=== PATIENT | female | born 1960 | race Caucasian/White ===

== ENCOUNTER → 2018-11-07 | Outpatient (CLI) | payer BC ==
[2018-11-07 09:52] LABS: ALT 36 U/L (9-52); AST 26 U/L (14-36); Albumin 4.7 g/dL (3.5-5.0); Alkaline Phosphatase 58 U/L (38-126); Anion Gap 7 mmol/L; Blood Urea Nitrogen 19 mg/dL (7-17); Calcium 10.1 mg/dL (8.4-10.2); Carbon Dioxide 29 mmol/L (22-30); Chloride 106 mmol/L (98-107); Cholesterol 163 mg/dL (<200); Glucose 105 mg/dL (74-99); HDL Cholesterol 59 mg/dL (40-60); LDL Cholesterol,Calculated 75 mg/dL (0-99); Potassium 4.8 mmol/L (3.5-5.1); Sodium 142 mmol/L (137-145); Total Bilirubin 0.5 mg/dL (0.2-1.3); Total Protein 7.1 g/dL (6.3-8.2); Triglycerides 147 mg/dL (<150)
[2018-11-07 10:07] LABS: T4, Free (Free Thyroxine) 0.85 ng/dL (0.78-2.19)
--- NOTE | 2018-11-07 15:13 | BD ---
EXAMINATION TYPE: Axial Bone Density DATE OF EXAM: 11/07/2018 COMPARISON: NONE CLINICAL HISTORY: Height: 63.5 IN Weight: 334 LBS RISK FACTORS HISTORY OF: Active: MODERATE Postmenopausal woman: AGE 45 TOTAL HYST Lost more than 2 inches in height since high school: YES 4" MEDICATIONS: Additional Medications: VIT D, MULTI VIT, BLOOD PRESSURE, DEPRESSION, REQUIP, CYSTITIS OF BLADDER ME D, NORCO, Additional History: HODGEKINS LYMPHOMA, WITH CHEMO AGE 44 EXAM MEASUREMENTS: Bone mineral densitometry was performed using the [employer] System. Bone mineral density as measured about the Lumbar spine is: ----- L1-L4(G/cm2): 1.290 T Score Values are as follows: ----- L2: 0.7 ----- L3: 1.2 ----- L4: 1.3 ----- L1-L4: 0.9 Bone mineral density BASELINE Bone mineral density about the R hip (g/cm2): 0.961 Bone mineral density about the L hip (g/cm2): 0.981 T Score values are as follows: -----R Neck: -0.6 -----L Neck: -0.4 -----R Total: -0.3 -----L Total: -0.2 Bone mineral density [id number] IMPRESSION: Normal (Values between +1 and -1 indicate normal bone mass). Consider repeating this study in 5 year s or sooner if there is some new clinical indication. NOTE: T-SCORE=SD OF THE YOUNG ADULT MEAN.
[2018-11-07 19:15] LABS: Hemoglobin A1C 5.9 % (4.0-6.0)
--- NOTE | 2018-11-08 11:05 | MM ---
Reason for exam: screening (asymptomatic). Last mammogram was performed 1 year and 2 months ago. History: Patient is postmenopausal, has history of other cancer at age 44, and is nulliparous. Benign stereotactic core biopsy of the right breast, April 20, 2004. Cyst aspiration of the right breast. Physical Findings: A clinical breast exam by your physician is recommended on an annual basis and results should be correlated with mammographic findings. MG Screening Mammo w CAD Bilateral CC and MLO view(s) were taken. Prior study comparison: September 20, 2017, mammogram, performed at [facility]. June 05, 2015, bilateral MG screening mammo w CAD. April 05, 2013, bilateral digital screening mammo w/CAD. There are scattered fibroglandular densities. Stable benign calcifications. There is no discrete abnormality. No significant changes when compared with prior studies. ASSESSMENT: Benign, BI-RAD 2 RECOMMENDATION: Routine screening mammogram of both breasts in 1 year.
== END | disposition home or self-care (01) ==
LOC: RADMAMWWP 08:09
PROVIDERS: ATTEND Family Medicine
DX: Z12.31 Encounter for screening mammogram for malignant neoplasm of breast (principal); M51.36 Other intervertebral disc degeneration, lumbar region; E78.5 Hyperlipidemia, unspecified; E66.01 Morbid (severe) obesity due to excess calories
CPT/HCPCS: 77067; 77080; 80053; 80061; 82306; 83036; 84439; 84443

== ENCOUNTER 2020-01-03 07:52 | Day surgery (SDC) | payer BC ==
[2020-01-02 09:33] VITALS: BMI 48.2
[~2020-01-03 07:52] MED LIST: LACTATED RINGERS 1,000 ML IV SCH; LIDOCAINE 1% (10MG/ML) FOR IV START INTRADERMA PRN
[2020-01-03 08:25] VITALS: TEMP 96.8
[2020-01-03] MEDS ORDERED: PROPOFOL 10 MG/ML 20 ML VIAL IV ONE (09:18)
--- NOTE | 2020-01-03 09:51 | P.PCN ---
Date of Procedure: 01/03/20 Description of Procedure: BRIEF HISTORY: Patient is a 59-year-old female with a prior history of colon polyps and family history of colon cancer presenting for outpatient colonoscopy. Denies any change in bowel habits, blood per rectum or abdominal pain. Does report some hemorrhoidal irritation bowel prep yesterday. PROCEDURE PERFORMED: Colonoscopy with polypectomy. PREOPERATIVE DIAGNOSIS: History of colon polyps, family history of colon cancer, last colonoscopy 2014. ESTIMATED BLOOD LOSS: Minimal. IV sedation per Anesthesia. PROCEDURE: After informed consent was obtained, the patient, was brought into the endoscopy unit. IV sedation was administered by Anesthesia under continuous monitoring. Digital rectal examination was normal. Initially the Olympus CF-190 flexible video colonoscope was then inserted in the rectum, gradually advanced into the cecum without any difficulty. Careful examination was performed as the scope was gradually being withdrawn. Ileocecal valve and the appendiceal orifice were visualized and appeared normal. Prep was excellent. Mucosa of the cecum, ascending colon, transverse colon, descending colon, sigmoid colon, and rectum appeared normal. Diminutive 2 mm sigmoid colon polyp removed with cold forcep polypectomy. Retroflexion was performed in the rectum and no lesions were seen, low-grade internal hemorrhoids. The patient tolerated the procedure well. IMPRESSION: Normal-appearing colon from rectum to cecum. Diminutive sigmoid polyp removed with cold forceps. Mild sigmoid diverticulosis. Low-grade internal hemorrhoids. RECOMMENDATIONS: Findings of this examination were discussed with the patient. Okay to resume diet. Okay to resume medications. Await pathology from polypectomy. Would recommend repeat colonoscopy in 5 years for family history of colon cancer.
[2020-01-03 10:05] VITALS: PULSE 99
[2020-01-03 10:27] VITALS: BP 107/74; RESP 18
== END 2020-01-03 10:26 | disposition home or self-care (01) ==
LOC: ORWHC2ENDO 07:52
PROVIDERS: ATTEND Internal Medicine
DX: Z12.11 Encounter for screening for malignant neoplasm of colon (principal); K63.5 Polyp of colon; K64.8 Other hemorrhoids; K57.30 Diverticulosis of large intestine without perforation or abscess without bleeding; I10 Essential (primary) hypertension; E78.5 Hyperlipidemia, unspecified; Z86.010 Personal history of colon polyps; Z80.0 Family history of malignant neoplasm of digestive organs; Z88.8 Allergy status to other drugs, medicaments and biological substances; Z91.09 Other allergy status, other than to drugs and biological substances; Z79.82 Long term (current) use of aspirin; Z79.899 Other long term (current) drug therapy; Z79.1 Long term (current) use of non-steroidal anti-inflammatories (NSAID); Z79.891 Long term (current) use of opiate analgesic; Z98.890 Other specified postprocedural states; Z90.49 Acquired absence of other specified parts of digestive tract; Z90.710 Acquired absence of both cervix and uterus; Z87.39 Personal history of other diseases of the musculoskeletal system and connective tissue; Z97.2 Presence of dental prosthetic device (complete) (partial); Z85.72 Personal history of non-Hodgkin lymphomas
CPT/HCPCS: 88305; 45380; J2704

== ENCOUNTER → 2020-03-20 | Outpatient (CLI) | payer BC ==
--- NOTE | 2020-03-20 17:13 | CONS ---
CONSULTATION DATE OF SERVICE: 03/20/2020 A 59-year-old lady who has been evaluated in the Sleep Center for possible obstructive sleep apnea-hypopnea syndrome and periodic limb movements. HISTORY OF PRESENT ILLNESS/SLEEP-WAKE EVALUATION: Patient's usual sleep schedule on weekdays from 10 p.m. to 6:30 a.m., on weekends from 11 p.m. to 7 or 8 a.m. She does have problems with falling asleep although no TV in bedroom. She usually start to sleep on her stomach position, then she moved and sleeps in different positions. She snores. During a recent colonoscopy, she was told about a low level of oxygen and then she was recommended to be evaluated in Sleep Clinic. She grinds her teeth in her sleep, wakes up with dry mouth, restless legs up to 4 times per night with one episode of nocturia. Presently, she is on Requip and that improved her restless leg symptoms and movements at night. In the morning, patient wakes up tired, worries about his sleep, has episodes of depression, anxiety. [place] Sleepiness Scale is 6. PAST MEDICAL HISTORY: Positive for hypertension, hyperlipidemia, Hodgkin lymphoma, allergy. PAST SURGICAL HISTORY: Hysterectomy, tonsillectomy, bilateral cataract surgery, lap band surgery. Left knee replacement for right carpal tunnel syndrome surgery. MEDICATIONS: Atenolol 50 mg b.i.d., Lunesta 3 mg q.h.s., Lipitor 10 mg q.h.s., Effexor XR 150 mg and 75 mg daily, Amiodarone 100 mg t.i.d., Requip 0.5 mg q.h.s., Wellbutrin SR 150 mg q.12 hours, Zyrtec 10 mg daily daily, multivitamins. SOCIAL HISTORY: Negative for smoking or using alcohol. FAMILY HISTORY: Positive for heart problems, stroke. REVIEW OF SYSTEMS: Multiple awakenings from sleep, episodes of sleepiness during the day, sometimes moving her legs during the sleep. PHYSICAL EXAM: lady without distress, BP 170/82, HR 84, RR 16, height 5, 4-1/2, weight 356.2, BMI 60.7, temperature 98.0, oxygen saturation at room air 95%. OROPHARYNX: Extremely low position of soft palate, Mallampati IV, wide neck 16-1/4 inches in circumference. ABDOMEN: Obese. NECK: Supple, no JVD. Thyroid is not palpable. LUNGS: Clear to percussion and to auscultation. Good air exchange. No wheezing or rhonchi. HEART: S1, S2 regular. No murmurs, gallops, or rubs. EXTREMITIES: No clubbing or cyanosis. SPORTS NUTRITIONIST: Awake, alert, and oriented X3. Cranial nerves 2 to 7 intact. There is no fasciculation or atrophy. noted. No focal deficits observed. IMPRESSION: 1. Snoring, multiple awakenings from sleep, nocturia, extremely low position of soft palate, Mallampati IV, wide neck, obstructive sleep apnea-hypopnea syndrome. 2. Morbid obesity, body mass index 60.7. 3. History of restless legs syndrome. 4. Movements of the legs at night, periodic limb movements. 5. Hypertension. 6. Hyperlipidemia. 7. History of Hodgkin's lymphoma. 8. Allergies. 9. Status post bilateral cataract surgery. 10.Status post hysterectomy. 11.Status post tonsillectomy. 12.Status post lap band surgery. 13.Status post left knee replacement. 14.Status post right carpal tunnel syndrome. PLAN: 1. Polysomnography for evaluation of patient's breathing during sleep. 2. CPAP/BiPAP titration if sleep study confirms obstructive sleep apnea-hypopnea syndrome. 3. Preferable position during sleep on the side. 4. No driving if patient feels any sleepiness. 5. I will see patient for follow up visit to explain results of testing and following plan. Thank you very much for referring this patient for consultation. Sincerely, Willie Long MD, PhD, FAASM Diplomat of [place] [employer] [place] [employer] Passenger Representative of [facility] [place] MMODL / IJN: [id number] /
== END | disposition home or self-care (01) ==
LOC: SLEEP 10:51
PROVIDERS: ATTEND Internal Medicine
DX: E66.01 Morbid (severe) obesity due to excess calories (principal); G47.61 Periodic limb movement disorder; I10 Essential (primary) hypertension; E78.5 Hyperlipidemia, unspecified; T78.40XA Allergy, unspecified, initial encounter; Z85.71 Personal history of Hodgkin lymphoma; Z68.44 Body mass index [BMI] 60.0-69.9, adult; Z90.710 Acquired absence of both cervix and uterus; Z96.652 Presence of left artificial knee joint; Z98.42 Cataract extraction status, left eye; Z98.41 Cataract extraction status, right eye
CPT/HCPCS: 99211

== ENCOUNTER → 2020-06-25 | Outpatient (CLI) | payer BC ==
--- NOTE | 2020-06-25 13:12 | SFUN ---
SLEEP CENTER FOLLOW UP NOTE DATE OF SERVICE: 06/25/2020 A 59-year-old lady who has been followed in Sleep Center for treatment of obstructive sleep apnea-hypopnea syndrome. Recently patient had a polysomnogram which showed moderate obstructive sleep apnea, then she had CPAP titration and subsequently she was started on treatment with CPAP. Today is her first visit after she started therapy. In the beginning, patient had some difficulties with the CPAP related to the pressure, but presently she feels better and able to use her CPAP unit. [place] Sleepiness Scale today is 3, which is totally normal. I checked her CPAP machine. CPAP pressure is 8 cm of water. Usage is 22 out of 30 nights and 12 out of 30 nights for more than 4 hours. Average usage 4.3 hours per night. Leak is 11 L/minutes. Apnea-hypopnea index is 1.3, which is perfect. MEDICATIONS: Atenolol 50 mg twice a day, Lunesta 3 mg at bedtime, Lipitor 10 mg once a day, Mobic 15 mg once a day, Effexor XR 150 mg once a day, [place] 100 mg 3 times a day, Requip 0.5 mg at bedtime, Xanax 0.25 mg up to 3 times a day, [place] 10/325 mg on p.r.n. basis q.6 hours, meclizine 12.5 mg p.r.n. up to 3 times a day, Zyrtec 10 mg once a day, aspirin 81 mg once a day. PHYSICAL EXAMINATION: GENERAL: Patient in no distress. VITAL SIGNS: BP 141/63, HR 86, RR 15, height 5 feet 4 inches, weight 350, BMI 60.2, temperature 98.0, oxygen saturation in room air 100% . HEENT: PERRLA, EOMI. Oropharynx low position of soft palate. NECK: Supple, no JVD. Thyroid is not palpable. LUNGS: Clear to percussion and to auscultation. Good air exchange. No wheezing or rhonchi. HEART: S1, S2 regular. No murmurs, gallops, or rubs. ABDOMEN: Obese. EXTREMITIES: No clubbing or cyanosis. SPACE TECHNOLOGIST: Awake, alert, and oriented X3. Cranial nerves 2 to 7 intact. There is no fasciculation or atrophy. noted. No focal deficits observed. IMPRESSION: 1. Obstructive sleep apnea-hypopnea syndrome. The patient normalized her breathing on the CPAP. 2. Obesity. 3. Restless legs syndrome. 4. Periodic limb movements. 5. Hypertension. 6. Hyperlipidemia. 7. History of Hodgkin lymphoma. 8. Allergies. PLAN: 1. I discussed with the patient necessity to use CPAP equipment every night for the whole night and explained to her about the position of the machine, about using distilled water, about drying the CPAP unit and tube the morning about cleaning. 2. Sleep hygiene with regular time in bed for at least 7-1/2 to 8 hours. 3. Precautions related to driving. No driving if feeling sleepiness. 4. I will maintain all necessary prescription for PAP supplies including mask, tube, filters. 5. Watching weight. 6. No driving if feeling sleepiness. 7. Follow-up visit in 6 months or earlier if patient has any problems. Thank you very much for allowing me to participate in management of your patient. Sincerely, Willie Long MD, PhD, FAASM Diplomat of [place] [employer] [place] [employer] Insurance Territory Manager of [facility] [place] MMODL / KEMN: [id number] /
== END | disposition home or self-care (01) ==
LOC: SLEEP 10:14
PROVIDERS: ATTEND Internal Medicine
DX: G47.33 Obstructive sleep apnea (adult) (pediatric) (principal); G25.81 Restless legs syndrome; I10 Essential (primary) hypertension; E78.5 Hyperlipidemia, unspecified; Z85.71 Personal history of Hodgkin lymphoma; Z99.89 Dependence on other enabling machines and devices; G47.61 Periodic limb movement disorder; Z79.899 Other long term (current) drug therapy; Z79.1 Long term (current) use of non-steroidal anti-inflammatories (NSAID); Z79.82 Long term (current) use of aspirin

== ENCOUNTER → 2021-01-28 | Outpatient (CLI) | payer OTHER ==
--- NOTE | 2021-01-28 12:29 | SFUN ---
SLEEP CENTER FOLLOW UP NOTE DATE OF SERVICE: 01/28/2021 60-year-old lady has been followed in Sleep Center for treatment of obstructive sleep apnea-hypopnea syndrome. Patient continued to use his CPAP equipment in night and most of the night she used it for the whole night. [place] Sleepiness Scale today is only normal. The patient had significant amount of movements during the sleep. She has had history of periodic limb movements. She is on Requip. Recently, the dose of Requip was increased to 1 mg at night. I checked her CPAP unit. Usage is 30/30 nights and 24/30 nights for more than 4 hours, which is in good compliance. Leak is 12 L/minute which is borderline. Apnea-hypopnea index of 1.2, which is totally normal. MEDICATIONS: Coreg 25 mg twice a day, Lunesta 3 mg at bedtime. Lipitor 10 mg at bedtime, Effexor XR 160 mg once a day, 100 mg 3 tablets a day, Requip 1 mg at bedtime, Wellbutrin q.12 hours, multivitamins, aspirin 81 mg once a day, [place] 10/325 on a p.r.n. basis, Lasix 20 mg once a day. PHYSICAL EXAMINATION: GENERAL: Patient in no distress. BP 119/65, HR about 100, height 5 feet 3 and 2 quarters, weight is 256.6 pounds. Body mass index 61.6. The patient increased her weight from 6 pounds since previous visit. HEENT: PERRLA, EOMI. Oropharynx low position of soft palate. NECK: Supple, no JVD. Thyroid is not palpable. LUNGS: Clear to percussion and to auscultation. Good air exchange. No wheezing or rhonchi. HEART: S1, S2 regular. No murmurs, gallops, or rubs. ABDOMEN: Obese. Soft and nontender. Bowel sounds are present. No organomegaly appreciated. EXTREMITIES: No clubbing or cyanosis. AERIAL PLANTING AND CULTIVATION MANAGER: Awake, alert, and oriented X3. Cranial nerves 2 to 7 intact. There is no fasciculation or atrophy. noted. No focal deficits observed. IMPRESSION: 1. Obstructive sleep apnea-hypopnea syndrome. Patient demonstrated very good compliance with treatment, benefitting from treatment, with normal respirations on CPAP. 2. Obesity, morbid range. Body mass index 61.6. 3. Restless legs syndrome. 4. Periodic limb movements on treatment with Requip. 5. Hypertension. 6. Hyperlipidemia. 7. History of Hodgkin lymphoma. 8. Allergies. 9. Status post hysterectomy. 10.Status post cholecystectomy. 11.Status post tonsillectomy. 12.Status post right knee replacement and left knee replacement. 13.Status post rotator cuff repair. PLAN: 1. I checked air filter and remind patient she should change air filter on a regular basis. 2. Patient will continue to use PAP equipment every night for the whole night. 3. Sleep hygiene with regular time in bed for at least 7-1/2 to 8 hours. 4. Precautions related to driving. No driving if feeling sleepiness. 5. I will maintain all necessary prescription for PAP supplies including mask, tube, filters. 6. Watching weight. 7. Follow-up visit in 6 months or earlier if patient has any problems. Thank you very much for allowing me to participate in management of your patient. Sincerely, Willie Long MD, PhD, FAASM Diplomat of [place] [employer] Specialties Sleep Medicine Board of [place] [employer] of Internal Medicine Green Feed Attendant of [facility] [place] MMODL / IJN: [id number] /
== END ==
LOC: SLEEP 10:52
PROVIDERS: ATTEND Internal Medicine
DX: G47.33 Obstructive sleep apnea (adult) (pediatric) (principal); E66.9 Obesity, unspecified; G25.81 Restless legs syndrome; G47.61 Periodic limb movement disorder; I10 Essential (primary) hypertension; E78.5 Hyperlipidemia, unspecified; Z68.44 Body mass index [BMI] 60.0-69.9, adult; Z99.89 Dependence on other enabling machines and devices; Z85.71 Personal history of Hodgkin lymphoma; T78.40XA Allergy, unspecified, initial encounter; Z90.49 Acquired absence of other specified parts of digestive tract; Z90.09 Acquired absence of other part of head and neck; Z96.653 Presence of artificial knee joint, bilateral; Z98.890 Other specified postprocedural states; Z90.711 Acquired absence of uterus with remaining cervical stump; Z79.899 Other long term (current) drug therapy; Z91.048 Other nonmedicinal substance allergy status; Z87.891 Personal history of nicotine dependence

== ENCOUNTER → 2021-03-31 | Outpatient (CLI) | payer OTHER ==
--- NOTE | 2021-03-31 09:44 | P.BASOAP ---
Subjective Progress Note Date: 03/31/21 Principal diagnosis: Morbid obesity Patient known to our service. Underwent laparoscopic band placement 2008. Applications believes her weight was around 260 at the time of band placement. She did lose weight down to approximately 220 blood gradually has gained weight over the years and is now 351. Patient says her band was previously leucin because of intractable vomiting. Still has intermittent episodes of vomiting. Every time the patient received a band adjustment she had complications of heartburn and vomiting. Lately she has had pain in the left upper quadrant. It feels like a spasm and is quite severe. It seems to be near the port. She has these episodes of pain every 6 weeks or so. She believes her band is empty. Objective - Exam Abdomen: Soft, nontender, nondistended Assessment/Plan (1) Morbid obesity Narrative/Plan: 60-year-old female with indwelling LAP-BAND and comp location from the band including intractable nausea vomiting, reflux, and pain at the port site. Options reviewed in detail. We will schedule for laparoscopic lap band removal, possible open at this time. Patient will consider future bariatric surgeries including gastric bypass and sleeve gastrectomy. Believe gastric bypass is a better option for the patient given her reflux symptoms and degree of obesity. Plan: Date: Initial Weight: Initial BMI: Current Weight: Current BMI: Type of Surgery: Total Volume in Band: Previous Volume: Volume Removed: Volume Added: Band Size:
[2021-03-31 09:49] VITALS: BP 138/75; PULSE 70; TEMP 97.8; BMI 54.9
== END ==
LOC: BARWHC3 09:01
PROVIDERS: ATTEND Surgery
DX: E66.01 Morbid (severe) obesity due to excess calories (principal); K95.09 Other complications of gastric band procedure; Z68.43 Body mass index [BMI] 50.0-59.9, adult; Z87.891 Personal history of nicotine dependence; Z88.8 Allergy status to other drugs, medicaments and biological substances; Z91.048 Other nonmedicinal substance allergy status
CPT/HCPCS: 99211

== ENCOUNTER → 2021-09-03 | Outpatient (CLI) | payer OTHER ==
--- NOTE | 2021-09-03 15:12 | SFUN ---
SLEEP CENTER FOLLOW UP NOTE DATE OF SERVICE: 09/03/2021 This 60-year-old lady has been followed in Sleep Center for treatment of obstructive sleep apnea-hypopnea syndrome. The patient continues to use her CPAP equipment every night for the whole night. She needs to get a new prescription for supplies. [place] Sleepiness Scale today is 3, which is normal. The patient is on treatment with Requip for restless legs and periodic limb movements. With the medication, no problems with leg movements. I checked her CPAP unit. Pressure is 8 cm of water. Usage is 30/30 nights, 28/30 nights for more than 4 hours. Leak is 25 L/minute, borderline. Apnea-hypopnea index is 2.0, which is totally normal. The air filter needs to be changed in the machine. The patient needs to get a new mask. MEDICATIONS: 1. Aspirin 81 mg once a day. 2. Carvedilol 25 mg twice a day. 3. Effexor XR 75 mg once a day. 4. Lasix 20 mg once a day. 5. Lipitor 10 mg once a day. 6. Lisinopril 10 mg once a day. 7. Lunesta 3 mg once a day. 8. [place] 10/325 mg once a day in the morning. 9. Requip 1 mg daily in the evening. 10.Zyrtec 10 mg once a day. 11.Wellbutrin SR 200 mg once every 12 hours. 12.Xanax 0.25 mg up to 3 times a day on p.r.n. basis. PHYSICAL EXAMINATION: GENERAL: Pleasant patient in no distress. VITAL SIGNS: BP 124/84, HR 99, RR 18, weight 364 pounds, height 5 feet 3-2/4 inches, temperature 97.0, oxygen saturation at room air 97%. HEENT: PERRLA, EOMI, evaluation of oropharynx showed tongue protrudes midline. Low position of soft palate. NECK: Supple, no JVD. Thyroid is not palpable. LUNGS: Clear to percussion and to auscultation. Good air exchange. No wheezing or rhonchi. HEART: S1, S2 regular. No murmurs, gallops, or rubs. ABDOMEN: Obese. EXTREMITIES: No clubbing or cyanosis. POOL LIFEGUARD: Awake, alert, and oriented X3. Cranial nerves 2 to 7 intact. There is no fasciculation or atrophy. noted. No focal deficits observed. IMPRESSION: 1. Obstructive sleep apnea-hypopnea syndrome. Patient demonstrated great compliance with treatment, benefitting from treatment. 2. Obesity in morbid range. The patient's weight increased by 8 pounds since previous visit. At present her weight is 364.8 pounds. 3. Restless legs syndrome. 4. Periodic limb movements. 5. Hypertension. 6. Hyperlipidemia. 7. History of Hodgkin's lymphoma. 8. Allergies. 9. Status post hysterectomy. 10.Status post cholecystectomy. 11.Status post tonsillectomy. 12.Status post bilateral knee replacement. 13.Status post rotator cuff repair. PLAN: 1. Patient will continue to use PAP equipment every night for the whole night. 2. Sleep hygiene with regular time in bed for at least 7-1/2 to 8 hours. 3. Precautions related to driving. No driving if feeling sleepiness. 4. I will maintain all necessary prescription for PAP supplies including mask, tube, filters. 5. Watching weight. 6. Follow-up visit in 6 months or earlier if patient has any problems. Thank you very much for allowing me to participate in the management of your patient. Sincerely, Willie Long MD, PhD, FAASM Diplomat of [place] [employer] Sleep Medicine Board of [place] [employer] Medicine Casing Tester of [facility] [place] MMODL / DAVID: [id number] /
== END ==
LOC: SLEEP 13:46
PROVIDERS: ATTEND Internal Medicine
DX: G47.33 Obstructive sleep apnea (adult) (pediatric) (principal); E66.01 Morbid (severe) obesity due to excess calories; G25.81 Restless legs syndrome; G47.61 Periodic limb movement disorder; I10 Essential (primary) hypertension; E78.5 Hyperlipidemia, unspecified; Z85.71 Personal history of Hodgkin lymphoma; T78.40XD Allergy, unspecified, subsequent encounter; Z90.710 Acquired absence of both cervix and uterus; Z90.49 Acquired absence of other specified parts of digestive tract; Z90.89 Acquired absence of other organs; Z96.653 Presence of artificial knee joint, bilateral; Z98.890 Other specified postprocedural states; Z79.899 Other long term (current) drug therapy; Z91.09 Other allergy status, other than to drugs and biological substances; Z88.8 Allergy status to other drugs, medicaments and biological substances; Z87.891 Personal history of nicotine dependence

== ENCOUNTER → 2022-03-25 | Outpatient (CLI) | payer OTHER ==
--- NOTE | 2022-03-25 10:53 | P.PN ---
Subjective DATE: 03/25/2022 FOLLOW UP VISIT. Patient with obstructive sleep apnea hypopnea syndrome return to sleep center for follow-up visit. Information from previous visit have been reviewed. Patient is using PAP equipment every night for the whole night, getting PAP supplies in time. The patient does not have significant problems with the mask, PAP unit and humidification. [place] sleepiness scale is for. I checked PAP unit. Air filter is related to be replaced PAP unit pressure 8 cm H2O. Usage is 100 % for more then 4 hours, average 6.8 hours per night. Leak is 23 l/m, which is in acceptable range. Apnea Hypopnea Index is 1.7, which is normal. MEDICATIONS:1. Aspirin 81 mg once a day 2. Carvedilol 25 mg twice a day 3. And Effexor 150 mg once a day 4. Lasix 20 mg once a day 5. Lipitor 10 mg once a day 6. Lisinopril 10 mg once a day 7. [place] [id number] milligrams once a day 8. Requip once a day 9. Wellbutrin 200 mg every 12 hours During physical exam: GENERAL: A pleasant patient without any distress. VITAL SIGNS: BP 164/91, HR 84, RR 16 , weight 370 patient increased to wait on 6 pounds comparing to the previous visit, temperature 96.3, oxygen saturation at room air 98 % . HEENT: PERRLA, EOMI.low position of soft palate . NECK: Supple. No JVD. LUNGS: Clear to percussion and to auscultation. Good air exchange. No wheezing or rhonchi. HEART: S1, S2 regular. ABDOMEN: Soft and nontender. Obese EXTREMITIES: No clubbing or cyanosis. OPS ANALYST: Awake, alert, and oriented x3. No focal deficit. Impressions: 1. Obstructive sleep apnea-hypopnea syndrome. Patient demonstrated great compliance with treatment, benefiting from treatment. 2. Obesity body mass index 62.3. 3. Restless leg syndrome. 4. Periodic limb movements. 5. Hypertension. 6. Hyperlipidemia. 7. ALLERGIES. 8. History of Hodgkin's lymphoma. 9. Status post hysterectomy. 10. Status post cholecystectomy. 11. Status post tonsillectomy. 12. Status post bilateral knee replacement. Plan: 1. Continue using PAP equipment every night for the whole night. 2. To change air filter at least 1-2 times per month. 3. PAP unit should stay lower then position of the head. 4. Advised patient to remove all remaining water from humidifier canister daily and make it dry after each usage. Refill canister with fresh distilled water before each usage. 5. Sleep hygiene with regular time in bed for at least 8 hours. 6. Precautions related to driving. No driving if feel any sleepiness. 7. I will maintain prescription for PAP supplies including mask, tube, filters. 8. Follow up visit in 6 months or earlier if patient has any problems. 9. Losing weight. Thank you very much for allowing me to participate in the management of your patient. Willie Long MD, PhD, FAASM. Diplomat of [place] Board [employer] Sleep Medicine, Sleep Medicine Board by [place] [employer] of Internal Medicine Director Information Security of [facility] [place]
== END ==
LOC: SLEEP 10:27
PROVIDERS: ATTEND Internal Medicine
DX: G47.33 Obstructive sleep apnea (adult) (pediatric) (principal); E66.9 Obesity, unspecified; Z68.44 Body mass index [BMI] 60.0-69.9, adult; G25.81 Restless legs syndrome; G47.61 Periodic limb movement disorder; I10 Essential (primary) hypertension; E78.5 Hyperlipidemia, unspecified; T78.40XA Allergy, unspecified, initial encounter; Z85.71 Personal history of Hodgkin lymphoma; Z90.710 Acquired absence of both cervix and uterus; Z90.49 Acquired absence of other specified parts of digestive tract; Z90.09 Acquired absence of other part of head and neck; Z96.653 Presence of artificial knee joint, bilateral; Z99.89 Dependence on other enabling machines and devices; Z79.899 Other long term (current) drug therapy; Z88.9 Allergy status to unspecified drugs, medicaments and biological substances; Z91.09 Other allergy status, other than to drugs and biological substances; Z87.891 Personal history of nicotine dependence

== ENCOUNTER → 2022-09-15 | Outpatient (CLI) | payer MEDICARE, OTHER ==
--- NOTE | 2022-09-16 07:51 | MM ---
Reason for Exam: Screening (asymptomatic). Last screening mammogram was performed 12 month(s) ago. Patient History: Menarche at age 12. Patient has no children. Left ovary removed at age 43. Right ovary removed at age 43. Hysterectomy at age 43. Postmenopausal. Other cancer, age 44. Cyst Aspiration on the Right side. 04/20/2004, Benign Stereotactic Core Biopsy on the right side. Paternal cousin had breast cancer under age 50. Paternal cousin had breast cancer at or over age 50. Paternal cousin had breast cancer at or over age 50. Risk Values: [place] 5 year model risk: 2.1%. NCI Lifetime model risk: 8.7%. Prior Study Comparison: 04/05/2013 Bilateral Screening Mammogram, [facility]. 06/05/2015 Bilateral Screening Mammogram, [facility]. 09/20/2017 Bilateral MG 3D screening mammo w/cad, [facility]. 09/20/2017 Screening Mammogram, [facility]. 11/07/2018 Bilateral Screening Mammogram, [facility]. 09/03/2021 Bilateral MG 3D screening mammo w/cad, [facility]. Tissue Density: The breast tissue is almost entirely fat. Findings: Analyzed By CAD. Benign-appearing calcifications bilaterally. There is no suspicious group of microcalcifications or new suspicious mass in either breast. Overall Assessment: Benign, BI-RAD 2 Management: Screening Mammogram of both breasts in 1 year. A clinical breast exam by your physician is recommended on an annual basis and results should be correlated with mammographic findings. [facility] will attempt to contact patient to return for supplemental views and ultrasound if indicated. Electronically signed and approved by: Kelvin Ladd DO
== END | disposition home or self-care (01) ==
LOC: RADMAMWWP 13:38
PROVIDERS: ATTEND Family Medicine
DX: Z12.31 Encounter for screening mammogram for malignant neoplasm of breast (principal); Z80.3 Family history of malignant neoplasm of breast; Z78.0 Asymptomatic menopausal state
CPT/HCPCS: 77063; 77067

== ENCOUNTER → 2022-09-30 | Outpatient (CLI) | payer MEDICARE ==
--- NOTE | 2022-09-30 13:49 | P.PN ---
Subjective DATE: 09/30/2022 FOLLOW UP VISIT. Patient with obstructive sleep apnea hypopnea syndrome return to sleep center for follow-up visit. Information from previous visit have been reviewed. Patient is using PAP equipment every night for the whole night, getting PAP supplies in time. The patient does not have significant problems with the mask, PAP unit and humidification. [place] sleepiness scale is 4. I checked information from PAP unit. PAP unit pressure 8 cm H2O. Usage is 100 % for more then 4 hours, average 7.2 hours per night. Leak is 16 l/m, which is in acceptable range. Apnea Hypopnea Index is 2.0, which is normal. MEDICATIONS:1. Carvedilol 25 mg twice a day 2. And Effexor 150 mg once a day 3. Lipitor 20 mg once a day 4. Lisinopril 10 mg once a day 5. [place] 6. Reequip 1 mg once a day 7. Wellbutrin 200 mg twice a day 8. Effexor 75 mg 3 cups a day During physical exam: GENERAL: A pleasant patient without any distress. VITAL SIGNS: BP 155/76, HR 106, RR 18, weight 356, temperature 97, oxygen saturation at room air 97 % . HEENT: PERRLA, EOMI.low position of soft palate, Mallapati 3. NECK: Supple. No JVD. LUNGS: Clear to percussion and to auscultation. Good air exchange. No wheezing or rhonchi. HEART: S1, S2 regular. ABDOMEN: Soft and nontender. Obese EXTREMITIES: No clubbing or cyanosis. BUSINESS OFFICE SPECIALIST: Awake, alert, and oriented x3. No focal deficit. Impressions: 1. Obstructive sleep apnea-hypopnea syndrome. Patient demonstrated great compliance with treatment, benefiting from treatment. 2. Obesity, body mass index around 60. 3. Restless leg syndrome. 4. Periodic limb movements on treatment with Requip no complaints. 5. Hypertension. 6. History of Hodgkin lymphoma. 7. Hyperlipidemia. 8. ALLERGIES. 9. Status post bilateral knee replacement. 10. Status post tonsillectomy. 11. Status post hysterectomy. Plan: 1. Continue using PAP equipment every night for the whole night. 2. To change air filter at least 1-2 times per month. 3. PAP unit should stay lower then position of the head. 4. Advised patient to remove all remaining water from humidifier canister daily and make it dry after each usage. Refill canister with fresh distilled water before each usage. 5. Sleep hygiene with regular time in bed for at least 8 hours. 6. Precautions related to driving. No driving if feel any sleepiness. 7. I will maintain prescription for PAP supplies including mask, tube, filters. 8. Watching and losing weight. 9. Follow up visit in 6 months or earlier if patient has any problems. Thank you very much for allowing me to participate in the management of your patient. Willie Long MD, PhD, FAASM. Diplomat of [place] [employer], Sleep Medicine Board by [place] [employer] Consultant [facility] [place]
== END ==
LOC: SLEEP 13:24
PROVIDERS: ATTEND Internal Medicine
DX: G47.33 Obstructive sleep apnea (adult) (pediatric) (principal); E66.9 Obesity, unspecified; E78.5 Hyperlipidemia, unspecified; G25.81 Restless legs syndrome; I10 Essential (primary) hypertension; Z68.44 Body mass index [BMI] 60.0-69.9, adult; Z79.899 Other long term (current) drug therapy; Z85.71 Personal history of Hodgkin lymphoma; Z98.890 Other specified postprocedural states; G47.61 Periodic limb movement disorder; Z99.89 Dependence on other enabling machines and devices; Z96.653 Presence of artificial knee joint, bilateral; Z91.048 Other nonmedicinal substance allergy status; Z87.891 Personal history of nicotine dependence
CPT/HCPCS: 99212

== ENCOUNTER → 2022-11-04 | Outpatient (CLI) | payer MEDICARE ==
[2022-11-04 21:07] LABS: Anion Gap 10.5 mmol/L (10.00-18.00); Carbon Dioxide 27.5 mmol/L (20.0-27.5); Potassium 5.2 mmol/L (3.5-5.5)
[2022-11-04 21:08] LABS: African American GFR (CKD) 55.7 (60.0-200.0); BUN/Creat Ratio 19.83 Ratio (12.00-20.00); Blood Urea Nitrogen 23.8 mg/dL (9.0-27.0); Calcium 10.1 mg/dL (8.7-10.3); Non-African American GFR(CKD) 48.1 (60.0-200.0)
== END | disposition home or self-care (01) ==
LOC: LABWHC1 13:01
PROVIDERS: ATTEND Family Medicine
DX: I10 Essential (primary) hypertension (principal)
CPT/HCPCS: 36415; 80048

== ENCOUNTER → 2022-12-20 | Outpatient (CLI) | payer MEDICARE ==
[~2022-12-20] MED LIST changes: -LACTATED RINGERS 1,000 ML IV SCH; -LIDOCAINE 1% (10MG/ML) FOR IV START INTRADERMA PRN; +REGADENOSON 0.4 MG/5 ML SYRINGE IV PRN
[2022-12-20 10:25] LABS: HCT 39.4 % (34.0-46.0); HGB 12.7 gm/dL (11.4-16.0); MCH 31.2 pg (25.0-35.0); MCHC 32.2 g/dL (31.0-37.0); MCV 96.9 fL (80.0-100.0); Mean Platelet Volume 7.8; Platelet Count 333 k/uL (150-450); RBC 4.07 m/uL (3.80-5.40); RDW 12.7 % (11.5-15.5); WBC 7.8 k/uL (3.8-10.6)
[2022-12-20 10:37] LABS: ALT 21 U/L (4-34); AST 27 U/L (14-36); African American GFR (CKD) 71 (>60 ml/min/1.73 sqM); Albumin 4.3 g/dL (3.5-5.0); Albumin/Globulin Ratio 1.7; Alkaline Phosphatase 60 U/L (38-126); Anion Gap 8 mmol/L; Blood Urea Nitrogen 22 mg/dL (7-17); Calcium 9.8 mg/dL (8.4-10.2); Carbon Dioxide 26 mmol/L (22-30); Chloride 105 mmol/L (98-107); Globulin 2.5 g/dL; Glucose 121 mg/dL (74-99); Non-African American GFR(CKD) 62 (>60 ml/min/1.73 sqM); Potassium 4.6 mmol/L (3.5-5.1); Sodium 139 mmol/L (137-145); Total Bilirubin 0.5 mg/dL (0.2-1.3); Total Protein 6.8 g/dL (6.3-8.2)
[2022-12-20 10:54] LABS: T4, Free (Free Thyroxine) 0.99 ng/dL (0.78-2.19)
--- NOTE | 2022-12-20 11:55 | CA ---
Lexiscan Nuclear Stress Test Report Name: Shahrzad Khalil Exam Date: 12/20/2022 10:19 Exam Location: [place] Stress Ht (in): 64 Wt (lb): 340 BSA: 2.45 Ordering Phys: Johnny Franco MD Referring Phys: MICHAEL,, Technologist: Maulik Vazquez Age: 62 Gender: F : 1960 Procedure CPT: Indications: R07.2, R06.02 ICD-10 Codes: Patient History: CHEST PAIN, DIFFICULTY IN BREATHING, HTN, ELEVATED CHOLESTEROL LEVELS, FAMILY HX OF HEART DISEASE, PRIOR SMOKER Medications: Meds past 24 hrs: Pretest Chest Pain: STRESS TEST Lexiscan Protocol Exercise Duration (min:sec): 01:[address] Depressions (mm): Angina Score: 2 Craft Score: Resting HR (bpm): 83 Peak HR (bpm): 90 Resting BP (mmHg): 129 / 77 Peak BP (mmHg): 151 / 85 MPHR: 157 Target HR: 133 % MPHR: 57 METS: 1.0 Total Dose: Peak Dose: Atropine: Double Product: 25673 BP Response: Stress Termination: INFUSION COMPLETE Stress Symptoms: NO SYMPTOMS Stress Summary: ECG ANALYSIS Resting ECG: Stress ECG: CONCLUSIONS At baseline EKG showed normal sinus rhythm, left axis deviation, right bundle-branch block with nonspecific ST depressions V3 through V5. Patient recieved IV infusion of Lexiscan 0.4mg and at peak infusion EKG showed no significant change from baseline. Conclusions: 1. Nonspecific stress EKG portion secondary baseline EKG abnormalities. 2. Nuclear imaging to be reported separately. Dr. Jose Rafael Van DO (Electronically Signed) Final Date: 20 December 2022 11:54
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
--- NOTE | 2022-12-20 13:19 | NM ---
EXAMINATION TYPE: NM stress lexiscan cardiolite DATE OF EXAM: 12/20/2022 COMPARISON: NONE CLINICAL INDICATION: Female, 62 years old with history of R07.2, R06.02; TECHNIQUE: After the intravenous administration of 9.4 mCi Tc 99m Sestamibi - Cardiolite resting SPE CT images acquired 45 minutes post injection. The patient received 0.4mg Lexiscan, 26.4 mCi Tc 99m Sestamibi - Stress images obtained [address] injection FINDINGS: Review of stress and rest SPECT images demonstrates decreased perfusion involving the apical anterior and apical septal wall which may reflect stress-induced ischemia. Gated analysis shows normal wall m otion with an estimated left ventricular ejection fraction of 57 %. IMPRESSION: decreased perfusion involving the apical anterior and apical septal wall which may reflect stress-ind uced ischemia.
[2022-12-21 04:10] LABS: LDL Cholesterol,Calculated 77.5 mg/dL (0.0-131.0)
== END | disposition home or self-care (01) ==
LOC: RADNMMAIN 08:26
PROVIDERS: ATTEND Internal Medicine Interventional Cardiology
DX: R07.2 Precordial pain (principal); R06.02 Shortness of breath
CPT/HCPCS: 93017; 84439; 80061; 80053; 84443; 85027; 82306; 83036; 36415; 78452; C8929; A9500; J2785; Q9950; 93306

== ENCOUNTER → 2022-12-20 | Outpatient (CLI) | payer MEDICARE ==
[2022-12-20 13:39] LABS: Appearance,Urine Clear (Clear); Bacteria,Urine Rare /hpf; Bilirubin,Urine Negative (Negative); Blood,Urine Negative (Negative); Color,Urine Yellow; Glucose,Urine (UA) Negative (Negative); Hyaline Casts,Urine 3 /lpf (0-2); Ketones,Urine Negative (Negative); Leukocyte Esterase,Urine Small (Negative); Mucus,Urine Rare /hpf; Nitrite,Urine Negative (Negative); PH, Urine 5.5 (5.0-8.0); Protein,Urine Trace (Negative); RBC,Urine 1 /hpf (0-5); Specific Gravity,Urine 1.022 (1.001-1.035); Squamous Epithelial Cell,Urine 2 /hpf (0-4); Urobilinogen,Urine <2.0 mg/dL (<2.0); WBC,Urine 5 /hpf (0-5)
== END | disposition home or self-care (01) ==
LOC: LABPRL 11:21
PROVIDERS: ATTEND Family Medicine
DX: I10 Essential (primary) hypertension (principal); E78.5 Hyperlipidemia, unspecified; E66.01 Morbid (severe) obesity due to excess calories
CPT/HCPCS: 81001

== ENCOUNTER → 2023-04-14 | Outpatient (CLI) | payer MEDICARE ==
--- NOTE | 2023-04-14 14:20 | P.PN ---
Subjective DATE: 04/14/2023 FOLLOW UP VISIT. Patient with obstructive sleep apnea hypopnea syndrome return to sleep center for follow-up visit. Information from previous visit have been reviewed. Patient is using PAP equipment every night for the whole night, getting PAP supplies in time. The patient does not have significant problems with the mask, PAP unit and humidification. [place] sleepiness scale is 2, which is normal. I checked information from PAP unit. PAP unit pressure 8 cm H2O. Usage is 100 % for more then 4 hours, average 7.5 hours per night. Leak is 25 l/m, which is in acceptable range. Apnea Hypopnea Index is 3.7, which is normal. MEDICATIONS:1. Bumex 1 mg once a day 2. Effexor 75 mg 3 capsules a day 3. Carvedilol 25 mg twice a day 4. Lipitor 20 mg once a day 5. Lisinopril 10 mg once a day 6. [place] 7. Requip 8. Wellbutrin 200 mg once a day During physical exam: GENERAL: A pleasant patient without any distress. VITAL SIGNS: BP 120/79, HR 91, RR 16, weight 363.8, temperature 97.7, oxygen saturation at room air 97 % . HEENT: PERRLA, EOMI.low position of soft palate, Mallapati 3 . NECK: Supple. No JVD. LUNGS: Clear to percussion and to auscultation. Good air exchange. No wheezing or rhonchi. HEART: S1, S2 regular. ABDOMEN: Soft and nontender. Obese EXTREMITIES: No clubbing or cyanosis. MINISTER HELPER: Awake, alert, and oriented x3. No focal deficit. Impressions: 1. Obstructive sleep apnea-hypopnea syndrome. Patient demonstrated great compliance with treatment, benefiting from treatment. 2. Obesity, patient increased his weight on 7 pounds. 3. Restless leg syndrome. 4. Periodic limb movements, no problems with treatment on Requip. 5. History of Hodgkin lymphoma. 6. Hypertension. 7. Hyperlipidemia. 8. Status post bilateral knee replacement. 9. ALLERGIES. 10. Status post tonsillectomy. 11. Status post hysterectomy. Plan: 1. Continue using PAP equipment every night for the whole night. 2. To change air filter at least 1-2 times per month. 3. PAP unit should stay lower then position of the head. 4. Advised patient to remove all remaining water from humidifier canister daily and make it dry after each usage. Refill canister with fresh distilled water before each usage. 5. Sleep hygiene with regular time in bed for at least 8 hours. 6. Precautions related to driving. No driving if feel any sleepiness. 7. I will maintain prescription for PAP supplies including mask, tube, filters. 8. Follow up visit in 6 months or earlier if patient has any problems. 9. Watching and losing weight. Thank you very much for allowing me to participate in the management of your patient. Willie Long MD, PhD, FAASM. Diplomat of [place] [employer], Sleep Medicine Board by [place] [employer] Web Page Developer of [facility] [place]
== END ==
LOC: 3 N SLEEP 13:15
PROVIDERS: ATTEND Internal Medicine
DX: G47.33 Obstructive sleep apnea (adult) (pediatric) (principal); E66.9 Obesity, unspecified; E78.5 Hyperlipidemia, unspecified; G25.81 Restless legs syndrome; G47.61 Periodic limb movement disorder; I10 Essential (primary) hypertension; Z99.89 Dependence on other enabling machines and devices; Z90.89 Acquired absence of other organs; Z79.899 Other long term (current) drug therapy; Z85.71 Personal history of Hodgkin lymphoma; Z96.653 Presence of artificial knee joint, bilateral; Z90.710 Acquired absence of both cervix and uterus; Z91.048 Other nonmedicinal substance allergy status; Z87.891 Personal history of nicotine dependence; Z91.09 Other allergy status, other than to drugs and biological substances
CPT/HCPCS: 99212

== ENCOUNTER 2023-05-17 15:28 | Observation (INO) | payer MEDICARE ==
--- NOTE | 2023-05-17 15:39 | ED ---
General Adult HPI - General Source: patient, RN notes reviewed Mode of arrival: ambulatory Limitations: no limitations <Hermann Dejesus - Last Filed: 05/17/23 15:37> <Jason Brown - Last Filed: 05/17/23 20:49> - General Stated complaint: Near Syncope, Sent by PCP Time Seen by Provider: 05/17/23 15:37 - History of Present Illness Initial comments: 62-year-old female presents emergency Department from PCPs office for his near syncopal episode. Patient states she's been having increasing shortness of breath. She states she does office which she'll try to get CT approval to rule out PE and states that she had near syncopal episode of the bathroom. Patient does admit that she is short of breath which is more chronic. She did have no table sweating episode. She states she was sent over here for further evaluation of cardiac and respiratory issues (Hermann Dejesus) 62-year-old female with a past medical history significant for morbid obesity and reported history of heart failure presenting to the ED with a chief complaint of dyspnea. Patient reports over the past month, has had episodes of intermittent dizziness. Patient reports that this usually occurs as she is standing or shortly after standing and ambulating. Reports that during this feels as if she is going to pass out. Reports that episodes typically last 5 minutes. Since onset, states that has had increased frequency of these episodes. In addition, patient reports that she is having some episodes of chest pain. Patient reports that this usually occurs when she is sitting. Pain affects the middle of her chest. States episodes can last up to 30 minutes. Also reports that since onset episodes have increased in frequency and she has not started to feel this pain while lying flat. States that when she puts pressure of areas affected by pain this somewhat improves the pain. Additionally, patient notes some shortness of breath especially with activity. Reports this has been getting progressively worse over the past few months. States that she is now unable to even dust her house for 5 minutes without needing to take a break due to this. States she was at her PCPs office today when she had an episode of dizziness and was advised to present to the ED for further evaluation. 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 Pain does not radiate. No nausea or vomiting. No abdominal pain. No changes in bowel or bladder habits. (Jason Brown) - Related Data Home Medications Medication Instructions Recorded Confirmed ALPRAZolam [Xanax] 0.25 mg PO TID PRN 04/14/15 05/17/23 Aspirin 81 mg PO HS 04/14/15 05/17/23 HYDROcodone/APAP 10-325MG [Constable 1 tab PO DAILY 04/14/15 05/17/23 10] buPROPion SR [Wellbutrin Sr] 150 mg PO BID 04/14/15 05/17/23 Eszopiclone [Lunesta] 3 mg PO HS 01/02/20 05/17/23 Lutein 20 mg PO DAILY@1200 01/02/20 05/17/23 Multivitamin [Multivitamins Adult 1 tab PO DAILY 01/02/20 05/17/23 Gummies] Venlafaxine HCl [Effexor XR] 225 mg PO DAILY 01/02/20 05/17/23 Atorvastatin [Lipitor] 20 mg PO HS 05/17/23 05/17/23 Bumetanide [Bumex] 1 mg PO DAILY 05/17/23 05/17/23 Cetirizine HCl [Zyrtec] 10 mg PO DAILY 05/17/23 05/17/23 Cholecalciferol [Vitamin D3 (125 125 mcg PO DAILY 05/17/23 05/17/23 Mcg = 5000 Iu)] HYDROcodone/APAP 10-325MG [Constable 1 tab PO BID PRN 05/17/23 05/17/23 10-325] carvediloL [Coreg] 25 mg PO BID 05/17/23 05/17/23 rOPINIRole HCL [Requip] 1 mg PO DAILY@1300 05/17/23 05/17/23 Allergies Allergy/AdvReac Type Severity Reaction Status Date / Time nickel Allergy Severe Rash/Hives Verified 05/17/23 20:13 psyllium Allergy Rash/Hives Verified 05/17/23 20:13 Review of Systems ROS Other: All systems not noted in ROS Statement are negative. <Hermann Dejesus - Last Filed: 05/17/23 15:37> ROS Other: All systems not noted in ROS Statement are negative. <Jason Brown - Last Filed: 05/17/23 20:49> ROS Statement: Those systems with pertinent positive or pertinent negative responses have been documented in the HPI. Past Medical History Past Medical History: Cancer, Hyperlipidemia, Hypertension Additional Past Medical History / Comment(s): HODGKIN'S LYMPHOMA-WITH CHEMO. ENVIRONMENTAL ALLERGIES History of Any Multi-Drug Resistant Organisms: MRSA Date of last positivie culture/infection: 06/2005 MDRO Source:: CHEMO PORT Past Surgical History: Bariatric Surgery, Cholecystectomy, Hernia Repair, Hysterectomy, Joint Replacement, Orthopedic Surgery, Tonsillectomy Additional Past Surgical History / Comment(s): CHEMO PORT X 2, I & D LT FOOT R/T SEPSIS FROM INFECTED CHEMO PORT. COLONOSCOPY. BILAT CATARACTS REMOVED WITH LENS IMPLANTS. LX NODE BX IN NECK. BILAT TKA. RT CTR. LT ROTATOR CUFF REPAIR Past Anesthesia/Blood Transfusion Reactions: No Reported Reaction Smoking Status: Former smoker - Past Family History Mother Family Medical History: Cancer Father Family Medical History: Cancer <Hermann Dejesus - Last Filed: 05/17/23 15:37> General Exam <Hermann Dejesus - Last Filed: 05/17/23 15:37> General appearance: alert, in no apparent distress, obese (Morbidly) Eye exam: Present: normal appearance Neck exam: Present: normal inspection Respiratory exam: Present: normal lung sounds bilaterally Cardiovascular Exam: Present: regular rate, normal rhythm GI/Abdominal exam: Present: soft Extremities exam: Present: other (No pitting edema) Neurological exam: Present: alert, oriented X3 Skin exam: Present: warm, dry <Jason Brown - Last Filed: 05/17/23 20:49> - General Exam Comments Initial Comments: Visual Physical Exam Vital signs reviewed General: Well-appearing, nontoxic, no acute distress. Head: Normocephalic, atraumatic Eyes: PERRLA, EOMI ENT: Airway patent Chest: Nonlabored breathing Skin: No visual rash, normal skin tone Neuro: Alert and oriented 3 Musculoskeletal: No gross abnormalities (Hermann Dejesus) Course Vital Signs 05/17/23 05/17/23 15:31 19:16 Temperature 98.3 F Pulse Rate 101 H 98 Respiratory 20 18 Rate Blood Pressure 146/89 148/82 O2 Sat by Pulse 99 99 Oximetry Medical Decision Making <Hermann Dejesus - Last Filed: 05/17/23 15:37> - Lab Data Result diagrams: 05/17/23 15:42 05/17/23 15:42 <Jason Brown - Last Filed: 05/17/23 20:49> - Medical Decision Making I performed a quick note portion of this chart signed Hermann Dejesus PA-C (Hermann Dejesus) Was pt. sent in by a medical professional or institution (, PA, SUPERVISOR CARDING, urgent care, hospital, or longterm...) When possible be specific @ -No Did you speak to anyone other than the patient for history (EMS, parent, family, police, friend...)? What history was obtained from this source @ -No Did you review nursing and triage notes (agree or disagree)? Why? @ -I reviewed and agree with nursing and triage notes Were old charts reviewed (outside hosp., previous admission, EMS record, old EKG, old radiological studies, urgent care reports/EKG's, longterm records)? Report findings @ -Lexican scan stress test on 12/20/22 showed decreased perfusion involving the apical anterior and apical septal wall which may reflect stress-induced ischemia. Echo on 12/20/22 showed left EF 55-60%, mild increased left ventricular wall thickness, mild right ventricular dilation, mild mitral regurgitation, mild tricuspid regurgitation, RVSP 17. Differential Diagnosis (chest pain, altered mental status, abdominal pain women, abdominal pain men, vaginal bleeding, weakness, fever, dyspnea, syncope, headache, dizziness, GI bleed, back pain, seizure, CVA, palpatations, mental health, musculoskeletal)? @ -Differential Dyspnea: Coronary syndrome, arrhythmia, tamponade, asthma, COPD, pulmonary embolism, pneumonia, pneumothorax, pulmonary effusion, anaphylaxis, diabetic ketoacidosis, flailed chest, pulmonary contusion, diaphragmatic rupture, anemia, neuromuscular, this is not meant to be an all-inclusive list. Differential Chest Pain: Stable Angina, Unstable Angina, STEMI, NSTEMI Aortic Dissection, Pneumothorax, Musculoskeletal, Esophageal Spasm GERD, Cholecystitis, Pancreatitis, Zoster, this is not meant to be an all-inclusive list. EKG interpreted by me (3pts min.). @ -As above X-rays interpreted by me (1pt min.). @ -Chest x-ray interpreted by me showed no evidence of acute finding. CT interpreted by me (1pt min.). @ -CTA chest revealed no evidence of PE or other acute findings. U/S interpreted by me (1pt. min.). @ -None done What testing was considered but not performed or refused? (CT, X-rays, U/S, labs)? Why? @ -None What meds were considered but not given or refused? Why? @ -None Did you discuss the management of the patient with other professionals (professionals i.e. Dr., PA, SUPERVISOR CARDING, lab, RT, psych nurse, social services coordinator, pump operator byproducts, teacher, communications officer, rn case management)? Give summary @ -No Was smoking cessation discussed for >3mins.? @ -No Was critical care preformed (if so, how long)? @ -No Were there social determinants of health that impacted care today? How? (Homel essness, low income, unemployed, alcoholism, drug addiction, transportation, low edu. Level, literacy, decrease access to med. care, alf, rehab)? @ -No Was there de-escalation of care discussed even if they declined (Discuss DNR or withdrawal of care, Hospice)? DNR status @ -No What co-morbidities impacted this encounter? (DM, HTN, Smoking, COPD, CAD, Cancer, CVA, ARF, Chemo, Hep., AIDS, mental health diagnosis, sleep apnea, morbid obesity)? @ -Morbid obesity Was patient admitted / discharged? Hospital course, mention meds given and route, prescriptions, significant lab abnormalities, going to OR and other pertinent info. @ -Admission 62-year-old female presents to the ED with complaints of near syncope, shortness of breath, and chest pain. Reports episodes increasing in frequency since onset. Laboratory studies show an elevated white blood cell count 13.5, neutrophils 10.8, d-dimer elevated at 1.18, BUN and creatinine elevated at 48 and 1.5, Elevated from baseline, first troponin 0.024, BNP 555. His x-ray revealed no pleural effusion or pneumonia or other evidence of acute findings. CT of the chest revealed evidence of PE. Patient will be admitted to observation with consult to cardiology and discussed plan of care with patient who is in agreement. Undiagnosed new problem with uncertain prognosis? @ -No Drug Therapy requiring intensive monitoring for toxicity (Heparin, Nitro, In sulin, Cardizem)? @ -No Were any procedures done? @ -No Diagnosis/symptom? @ -Chest pain, near-syncope, dyspnea Acute, or Chronic, or Acute on Chronic? @ -Acute On chronic Uncomplicated (without systemic symptoms) or Complicated (systemic symptoms)? @ -Complicated Side effects of treatment? @ -No Exacerbation, Progression, or Severe Exacerbation? @ -No Poses a threat to life or bodily function? How? (Chest pain, [place], [place], pneumonia, PE, COPD, DKA, ARF, appy, cholecystitis, CVA, Diverticulitis, Homicidal, Suicidal, threat to staff... and all critical care pts) @ -No (Jason Brown) - Lab Data Lab Results 05/17/23 05/17/23 05/17/23 Range/Units 15:42 15:42 15:42 WBC 13.5 H (3.8-10.6) k/uL RBC 4.35 (3.80-5.40) m/uL Hgb 13.9 (11.4-16.0) gm/dL Hct 41.9 (34.0-46.0) % MCV 96.3 (80.0-100.0) fL MCH 32.0 (25.0-35.0) pg MCHC 33.2 (31.0-37.0) g/dL RDW 12.5 (11.5-15.5) % Plt Count 285 (150-450) k/uL MPV 7.5 Neutrophils % 80 % Lymphocytes % 12 % Monocytes % 5 % Eosinophils % 1 % Basophils % 0 % Neutrophils # 10.8 H (1.3-7.7) k/uL Lymphocytes # 1.6 (1.0-4.8) k/uL Monocytes # 0.7 (0-1.0) k/uL Eosinophils # 0.2 (0-0.7) k/uL Basophils # 0.0 (0-0.2) k/uL PT 10.1 (10.0-12.5) sec INR 0.9 (<1.2) APTT 18.2 L (22.0-30.0) sec D-Dimer 1.18 H (<0.60) mg/L FEU Sodium 137 (137-145) mmol/L Potassium 4.8 (3.5-5.1) mmol/L Chloride 100 (98-107) mmol/L Carbon Dioxide 26 (22-30) mmol/L Anion Gap 11 mmol/L BUN 48 H (7-17) mg/dL Creatinine 1.52 H (0.52-1.04) mg/dL Est GFR (CKD-EPI)AfAm 42 (>60 ml/min/1.73 sqM) Est GFR (CKD-EPI)NonAf 36 (>60 ml/min/1.73 sqM) Glucose 109 H (74-99) mg/dL Plasma Lactic Acid Beka (0.7-2.0) mmol/L Calcium 10.3 H (8.4-10.2) mg/dL Magnesium 2.2 (1.6-2.3) mg/dL Total Bilirubin 0.5 (0.2-1.3) mg/dL AST 25 (14-36) U/L ALT 35 H (4-34) U/L Alkaline Phosphatase 64 (38-126) U/L Troponin I (0.000-0.034) ng/mL NT-Pro-B Natriuret Pep 555 pg/mL Total Protein 6.8 (6.3-8.2) g/dL Albumin 4.3 (3.5-5.0) g/dL 05/17/23 05/17/23 Range/Units 15:42 15:42 WBC (3.8-10.6) k/uL RBC (3.80-5.40) m/uL Hgb (11.4-16.0) gm/dL Hct (34.0-46.0) % MCV (80.0-100.0) fL MCH (25.0-35.0) pg MCHC (31.0-37.0) g/dL RDW (11.5-15.5) % Plt Count (150-450) k/uL MPV Neutrophils % % Lymphocytes % % Monocytes % % Eosinophils % % Basophils % % Neutrophils # (1.3-7.7) k/uL Lymphocytes # (1.0-4.8) k/uL Monocytes # (0-1.0) k/uL Eosinophils # (0-0.7) k/uL Basophils # (0-0.2) k/uL PT (10.0-12.5) sec INR (<1.2) APTT (22.0-30.0) sec D-Dimer (<0.60) mg/L FEU Sodium (137-145) mmol/L Potassium (3.5-5.1) mmol/L Chloride (98-107) mmol/L Carbon Dioxide (22-30) mmol/L Anion Gap mmol/L BUN (7-17) mg/dL Creatinine (0.52-1.04) mg/dL Est GFR (CKD-EPI)AfAm (>60 ml/min/1.73 sqM) Est GFR (CKD-EPI)NonAf (>60 ml/min/1.73 sqM) Glucose (74-99) mg/dL Plasma Lactic Acid [place] 1.7 (0.7-2.0) mmol/L Calcium (8.4-10.2) mg/dL Magnesium (1.6-2.3) mg/dL Total Bilirubin (0.2-1.3) mg/dL AST (14-36) U/L ALT (4-34) U/L Alkaline Phosphatase (38-126) U/L Troponin I 0.024 (0.000-0.034) ng/mL NT-Pro-B Natriuret Pep pg/mL Total Protein (6.3-8.2) g/dL Albumin (3.5-5.0) g/dL - EKG Data EKG Comments: EKG shows a sinus rhythm with right bundle branch block with nonspecific ST and T-wave changes. VA 135, QRS 128, QT/QTc 347/403. (Jason Brown) Disposition <Hermann Dejesus - Last Filed: 05/17/23 15:37> Time of Disposition: 20:49 <Jason Brown - Last Filed: 05/17/23 20:49> Clinical Impression: Chest pain, Dyspnea, Lightheadedness Disposition: ADMITTED IP TO THIS [facility] Condition: Good Referrals: Robert Ly DO [Primary Care Provider] - 1-2 days
[2023-05-17 16:14] LABS: Basophils % (A) 0 %; Eosinophils # (A) 0.2 k/uL (0-0.7); Eosinophils % (A) 1 %; HCT 41.9 % (34.0-46.0); HGB 13.9 gm/dL (11.4-16.0); Lymphocytes # (A) 1.6 k/uL (1.0-4.8); Lymphocytes % (A) 12 %; MCHC 33.2 g/dL (31.0-37.0); MCV 96.3 fL (80.0-100.0); Mean Platelet Volume 7.5; Monocytes # (A) 0.7 k/uL (0-1.0); Monocytes % (A) 5 %; Neutrophils # (A) 10.8 k/uL (1.3-7.7); Neutrophils % (A) 80 %; Platelet Count 285 k/uL (150-450); RBC 4.35 m/uL (3.80-5.40); RDW 12.5 % (11.5-15.5); WBC 13.5 k/uL (3.8-10.6)
--- NOTE | 2023-05-17 16:22 | XR ---
EXAMINATION TYPE: XR chest 2V DATE OF EXAM: 05/17/2023 COMPARISON: NONE HISTORY: Shortness of breath TECHNIQUE: Frontal and lateral views of the chest are obtained. FINDINGS: Scattered senescent parenchymal changes noted. Limited inspiration. No evidence for infiltrate. No evidence for atelectasis. Heart size is stable. Mediastinal structures are stable and grossly unremarkable. No evidence for hilar prominence. Degenerative changes dorsal spine. IMPRESSION: 1. No evidence for acute pulmonary disease. Inspiration is limiting.
[2023-05-17 16:26] LABS: ALT 35 U/L (4-34); AST 25 U/L (14-36); African American GFR (CKD) 42 (>60 ml/min/1.73 sqM); Albumin 4.3 g/dL (3.5-5.0); Alkaline Phosphatase 64 U/L (38-126); Anion Gap 11 mmol/L; Blood Urea Nitrogen 48 mg/dL (7-17); Calcium 10.3 mg/dL (8.4-10.2); Carbon Dioxide 26 mmol/L (22-30); Chloride 100 mmol/L (98-107); Glucose 109 mg/dL (74-99); Magnesium 2.2 mg/dL (1.6-2.3); Non-African American GFR(CKD) 36 (>60 ml/min/1.73 sqM); Potassium 4.8 mmol/L (3.5-5.1); Sodium 137 mmol/L (137-145); Total Bilirubin 0.5 mg/dL (0.2-1.3); Total Protein 6.8 g/dL (6.3-8.2)
[2023-05-17 16:34] LABS: NT-Pro-B-Type Natriuretic Pept 555 pg/mL
[2023-05-17 16:50] LABS: INR 0.9 (<1.2); Prothrombin Time 10.1 sec (10.0-12.5)
[2023-05-17 16:53] LABS: Partial Thromboplastin Time 18.2 sec (22.0-30.0)
[2023-05-17] MEDS ORDERED: SODIUM CHLORIDE 0.9% 1,000 ML IV STA (16:57)
--- NOTE | 2023-05-17 20:29 | CT ---
EXAMINATION TYPE: CT chest angio for PE CT DLP: 1385.8 mGycm, Automated exposure control for dose reduction was used. DATE OF EXAM: 05/17/2023 6:56 PM COMPARISON: Chest radiograph from same day. CLINICAL INDICATION:Female, 62 years old with history of r/o PE; SOB and elevated d-dimer TECHNIQUE/CONTRAST: CTA scan of the thorax is performed with IV Contrast, patient injected with 80ml mL of Isovue 370, [place] P images are created and reviewed these are created on a separate workstation.. FINDINGS: Some limitation by soft tissue attenuation artifact. Pulmonary Artery: There is no evidence for a filling defect within the pulmonary vasculature to sugge st acute pulmonary embolism. The pulmonary artery is of normal size. Lungs/Pleura: No evidence of focal consolidation, pleural effusion or pneumothorax. Mild subsegmental atelectatic changes. Airway: Large airways are patent. Heart: Heart size upper limits of normal. Somewhat prominent pericardial fat without effusion seen. S ome mitral valve and coronary artery calcifications. Vasculature: Mild atherosclerotic calcification. No evidence of aneurysm. Mediastinum: No gross evidence of adenopathy. Musculoskeletal: No acute osseous abnormality. Mild degenerative changes of the thoracic spine. Soft Tissues: Unremarkable. Lower neck: No significant findings. Upper Abdomen: Radiodensity consistent with a gastric lap band. Clips compatible with prior cholecyst ectomy. No evidence of an acute abnormality.. IMPRESSION: No evidence of pulmonary embolism.
[2023-05-17] MEDS ORDERED: TEMAZEPAM 30 MG CAP ONE (21:00)
[2023-05-17] MEDS ORDERED: NALOXONE 0.4 MG/ML 1 ML VIAL IV PRN (21:22)
[2023-05-17] MEDS ORDERED: HYDROmorphone 0.5 MG/0.5 ML SYRINGE IVP PRN (21:22)
[2023-05-17] MEDS ORDERED: ONDANSETRON 4 MG/2 ML VIAL IVP PRN (21:22)
[2023-05-17] MEDS ORDERED: ALPRAZolam 0.25 MG TAB PO PRN (21:24)
[2023-05-17] MEDS ORDERED: ATORVASTATIN 20 MG TAB PO SCH (21:30)
[2023-05-17] MEDS ORDERED: TEMAZEPAM 7.5 MG CAP PO SCH (21:30)
[2023-05-17] MEDS: SODIUM CHLORIDE 0.9% 1,000 ML IV SCH (21:40)
[2023-05-18 08:01] VITALS: RESP 16
[2023-05-18] MEDS ORDERED: CHOLECALCIFEROL 125 MCG (5000 IU) TABLET PO SCH (09:00)
[2023-05-18] MEDS ORDERED: BUMETANIDE 1 MG TAB PO SCH (09:00)
[2023-05-18] MEDS ORDERED: HYDROcodone/APAP 10-325MG 1 EACH TAB PO SCH (09:00)
[2023-05-18] MEDS ORDERED: VENLAFAXINE HCL ER 75 MG CAP PO SCH (09:00)
[2023-05-18] MEDS ORDERED: buPROPion SR 150 MG TABLET.ER PO SCH (09:00)
[2023-05-18] MEDS ORDERED: LORATADINE 10 MG TAB PO SCH (09:00)
[2023-05-18] MEDS ORDERED: carvediloL 12.5 MG TAB PO SCH (09:00)
[2023-05-18] MEDS ORDERED: MULTIVITAMINS, THERA 1 EACH TAB PO SCH (09:00)
[2023-05-18] MEDS: SODIUM CHLORIDE 0.9% 1,000 ML IV SCH (10:09)
[2023-05-18] MEDS ORDERED: BUMETANIDE 0.5 MG TABLET PO SCH ×2 (10:15→21:00)
[2023-05-18] MEDS ORDERED: ENOXAPARIN 40 MG/0.4 ML SYRINGE SQ SCH (11:15)
[2023-05-18] MEDS ORDERED: NON FORMULARY DRUG (Lutein [Lutein] 20 MG Capsule) PO SCH (12:00)
--- NOTE | 2023-05-18 12:25 | P.CRDCN ---
History of Present Illness Consult date: 05/18/23 Consult reason: chest pain (Dyspnea, dizziness) History of present illness: History of present illness: This is a 62-year-old female patient previously seen in the office by Dr. Jon Yun, last seen 10/07/2020. Patient now follows with accuracy expert, Dr. Franco, at [facility]. Patient has a past medical history of Hodgkin's lymphoma status post chemotherapy and radiation in 2004/2005, hypertension, hyperlipidemia, morbid obesity status post lap band, remote history of tobacco use and quit in 2000, obstructive sleep apnea. Patient had an appointment with her PCP and was sent over to the hospital for further evaluation. She had a near syncopal episode but no loss of consciousness. She states that she has had shortness of breath that has been going on since she had Covid in October 2022. She denies any recent weight gain. She states that when she sits on the toilet she has some nausea and sweatiness and pale. She states that she has been taking all of her medications as directed. Patient has an appointment scheduled with her accuracy expert on May 31. EKG sinus rhythm with ventricular rate of 107 bpm CTA no evidence of pulmonary embolism. WBC 13.5, hemoglobin 13.9. D-dimer 1.18. Electrolytes normal. BUN 48 creatinine 1.52. Troponin negative 4. ProBNP 555, normal for age. Home cardiac medications: Aspirin 81 mg daily, atorvastatin 20 g at bedtime, Bumex 1 mg daily, Coreg 25 mg twice daily. Echocardiogram performed here 12/20/2022: EF 55-60%, mild increased left ventricular wall thickness, mild right ventricular dilation, mild mitral regurgitation, mild tricuspid regurgitation. Lexiscan stress test performed 12/20/2022: Decreased perfusion involving the apical anterior and apical septal wall which may reflect stress-induced ischemia. Review Of Systems: At the time of my evaluation: Constitutional: No fever, no chills. Reports chronic fatigue. EENT: No headache. Reports episodes of dizziness. Lungs: Reports chronic shortness of breath, no cough, no sputum production. No wheezing. Cardiovascular: No chest pain, no lower extremity edema. No palpitations. No paroxysmal nocturnal dyspnea. No orthopnea. No lightheadedness or dizziness. No syncopal episodes. Abdominal: No abdominal pain. No nausea, vomiting. No diarrhea. No constipation. No bloody or tarry stools. Musculoskeletal: No myalgias. No muscle weakness, no frequent falls. Integumentary: No wounds. No rash. No unusual bruising. Neurologic: No aphasia. No facial droop. No change in mentation. Physical examination: Gen: This is a 62 year old female. She she is resting in bed and appears to be comfortable and in no acute distress. VS: reviewed HEENT: Head is atraumatic, normocephalic. Pupils equal, round. Sclerae is anicteric. NECK: Supple. No JVD. LUNGS: Clear to auscultation. No wheezes or rhonchi. No intercostal retractions. HEART: Regular rate and rhythm. No murmur. ABDOMEN: Soft No tenderness. EXTREMITIES: No pedal edema. No calf tenderness. NEUROLOGICAL: Patient is awake, alert and oriented x3. Assessment: Chest pain, atypical, acute coronary syndrome ruled out Chronic diastolic heart failure Morbid obesity Near syncopal episode Acute kidney injury Plan: Continue patient's home cardiac medications Change Bumex to 0.5 mg twice daily oral Start patient on Aldactone 12.5 mg daily Monitor electrolytes and renal function No need to obtain 2-D echocardiogram as this was done in December Further recommendations to follow based upon clinical course Thank you kindly for this consultation. Nurse practitioner note has been reviewed, I agree with documented findings and plan of care. Patient was seen and examined. Past Medical History Past Medical History: Cancer, Hyperlipidemia, Hypertension Additional Past Medical History / Comment(s): HODGKIN'S LYMPHOMA-WITH CHEMO and radiation dx in 2004, chemo and radiation in 2005. ENVIRONMENTAL ALLERGIES History of Any Multi-Drug Resistant Organisms: MRSA Date of last positivie culture/infection: 06/2005 MDRO Source:: CHEMO PORT Past Surgical History: Bariatric Surgery, Cholecystectomy, Hernia Repair, Hysterectomy, Joint Replacement, Orthopedic Surgery, Tonsillectomy Additional Past Surgical History / Comment(s): CHEMO PORT X 2, I & D LT FOOT R/T SEPSIS FROM INFECTED CHEMO PORT. COLONOSCOPY. BILAT CATARACTS REMOVED WITH LENS IMPLANTS. LX NODE BX IN NECK. BILAT TKA, lap band 2008, left rotator cuff repair 2008, right carpal tunnel repair 2017, left upper arm mass removed 2020 Past Anesthesia/Blood Transfusion Reactions: No Reported Reaction Past Psychological History: Anxiety, Depression Smoking Status: Former smoker Past Alcohol Use History: None Reported Additional Past Alcohol Use History / Comment(s): QUIT SMOKING 2000 Past Drug Use History: None Reported - Past Family History Mother Family Medical History: Cancer Father Family Medical History: Cancer Medications and Allergies Home Medications Medication Instructions Recorded Confirmed Type ALPRAZolam [Xanax] 0.25 mg PO TID PRN 04/14/15 05/17/23 History Aspirin 81 mg PO HS 04/14/15 05/17/23 History HYDROcodone/APAP 10-325MG [[place] 1 tab PO DAILY 04/14/15 05/17/23 History 10-325] buPROPion SR [Wellbutrin SR] 150 mg PO BID 04/14/15 05/17/23 History Eszopiclone [Lunesta] 3 mg PO HS 01/02/20 05/17/23 History Lutein 20 mg PO DAILY@1200 01/02/20 05/17/23 History Multivitamin [Multivitamins Adult 1 tab PO DAILY 01/02/20 05/17/23 History Gummies] Venlafaxine HCl [Effexor XR] 225 mg PO DAILY 01/02/20 05/17/23 History Atorvastatin [Lipitor] 20 mg PO HS 05/17/23 05/17/23 History Cetirizine HCl [Zyrtec] 10 mg PO DAILY 05/17/23 05/17/23 History Cholecalciferol [Vitamin D3 (125 125 mcg PO DAILY 05/17/23 05/17/23 History Mcg = 5000 Iu)] HYDROcodone/APAP 10-325MG [[place] 1 tab PO BID PRN 05/17/23 05/17/23 History 10-325] carvediloL [Coreg] 25 mg PO BID 05/17/23 05/17/23 History rOPINIRole HCL [Requip] 1 mg PO DAILY@1300 05/17/23 05/17/23 History Bumetanide [BUMEX] 1 mg PO DAILY@1300 #0 05/18/23 05/17/23 Rx Allergies Allergy/AdvReac Type Severity Reaction Status Date / Time nickel Allergy Severe Rash/Hives Verified 05/17/23 20:13 psyllium Allergy Rash/Hives Verified 05/17/23 20:13 Physical Exam Vitals: Vital Signs Temp Pulse Pulse Resp BP BP Pulse Ox 05/18/23 07:00 97.8 F 95 16 134/79 95 05/18/23 03:44 98.2 F 102 H 19 163/80 97 05/18/23 03:00 104 H 18 126/69 96 05/18/23 02:00 95 18 130/68 96 05/18/23 01:00 95 14 121/78 95 05/18/23 00:00 99 15 116/68 94 L 05/17/23 22:59 104 H 18 138/80 94 L 05/17/23 21:53 109 H 17 112/73 96 05/17/23 21:00 108 H 16 120/69 95 05/17/23 19:16 98 18 148/82 99 05/17/23 15:31 98.3 F 101 H 20 146/89 99 Intake and Output 05/17/23 05/18/23 05/18/23 22:59 06:59 14:59 Other: # Voids 2 Weight 159.665 kg 159.665 kg Results 05/17/23 15:42 05/17/23 15:42 Cardiac Enzymes 05/17/23 05/17/23 05/17/23 Range/Units 15:42 15:42 18:54 AST 25 (14-36) U/L Troponin I 0.024 0.022 (0.000-0.034) ng/mL 05/18/23 05/18/23 Range/Units 00:49 04:00 AST (14-36) U/L Troponin I 0.021 0.018 (0.000-0.034) ng/mL Coagulation 05/17/23 Range/Units 15:42 PT 10.1 (10.0-12.5) sec APTT 18.2 L (22.0-30.0) sec CBC 05/17/23 Range/Units 15:42 WBC 13.5 H (3.8-10.6) k/uL RBC 4.35 (3.80-5.40) m/uL Hgb 13.9 (11.4-16.0) gm/dL Hct 41.9 (34.0-46.0) % Plt Count 285 (150-450) k/uL Comprehensive Metabolic Panel 05/17/23 Range/Units 15:42 Sodium 137 (137-145) mmol/L Potassium 4.8 (3.5-5.1) mmol/L Chloride 100 (98-107) mmol/L Carbon Dioxide 26 (22-30) mmol/L BUN 48 H (7-17) mg/dL Creatinine 1.52 H (0.52-1.04) mg/dL Glucose 109 H (74-99) mg/dL Calcium 10.3 H (8.4-10.2) mg/dL AST 25 (14-36) U/L ALT 35 H (4-34) U/L Alkaline Phosphatase 64 (38-126) U/L Total Protein 6.8 (6.3-8.2) g/dL Albumin 4.3 (3.5-5.0) g/dL Current Medications Generic Name Dose Route Start Last Admin Trade Name Freq PRN Reason Stop Dose Admin Hydrocodone Bitart/Acetaminophen 1 each 05/18/23 09:00 Hydrocodone/Apap 10-325mg 1 Each Tab PO DAILY URMILA Alprazolam 0.25 mg 05/17/23 21:24 Alprazolam 0.25 Mg Tab PO TID PRN Pain Aspirin 81 mg 05/18/23 21:00 Aspirin 81 Mg PO HS URMILA Atorvastatin Calcium 20 mg 05/17/23 21:30 05/17/23 21:39 Atorvastatin 20 Mg Tab PO 20 mg HS URMILA Administration Bumetanide 1 mg 05/18/23 09:00 Bumetanide 1 Mg Tab PO DAILY URMILA Bupropion HCl 150 mg 05/18/23 09:00 Bupropion Sr 150 Mg Tablet.Er PO BID [facility] Carvedilol 25 mg 05/18/23 09:00 Carvedilol 12.5 Mg Tab PO BID [facility] Cholecalciferol 125 mcg 05/18/23 09:00 Cholecalciferol 125 Mcg (5000 Iu) Tablet PO DAILY URMILA Hydromorphone HCl 0.5 mg 05/17/23 21:22 Hydromorphone 0.5 Mg/0.5 Ml Syringe IVP Q3HR PRN Moderate Pain (Scale 4 to 6) Sodium Chloride 1,000 mls @ 75 mls/hr 05/17/23 21:30 05/17/23 21:40 Saline 0.9% IV 75 mls/hr .[id number] URMILA Administration Loratadine 10 mg 05/18/23 09:00 Loratadine 10 Mg Tab PO DAILY URMILA Multivitamins 1 each 05/18/23 09:00 Multivitamins, Thera 1 Each Tab PO DAILY URMILA Naloxone HCl 0.2 mg 05/17/23 21:22 Naloxone 0.4 Mg/Ml 1 Ml Vial IV Q2M PRN Opioid Reversal Ondansetron HCl 4 mg 05/17/23 21:22 Ondansetron 4 Mg/2 Ml Vial IVP Q8HR PRN Nausea And Vomiting Ropinirole HCl 1 mg 05/18/23 13:00 Ropinirole Hcl 1 Mg Tab PO DAILY@1300 URMILA Temazepam 30 mg 05/18/23 21:00 Temazepam 30 Mg Cap PO HS URMILA Venlafaxine HCl 225 mg 05/18/23 09:00 Venlafaxine Hcl Er 75 Mg Cap PO DAILY URMILA Intake and Output 05/17/23 05/18/23 05/18/23 22:59 06:59 14:59 Other: # Voids 2 Weight 159.665 kg 159.665 kg 05/17/23 15:42 05/17/23 15:42
[2023-05-18 13:49] VITALS: BP 100/63; PULSE 71; TEMP 98
--- NOTE | 2023-05-18 17:02 | P.HPIM ---
History of Present Illness H&P Date: 05/18/23 Chief Complaint: Near syncope This is a pleasant 62-year-old patient who follows with Dr. Ly. Chronic stable medical conditions include hyperlipidemia, hypertension, arches lymphoma treated with chemotherapy and radiation in 2004. Has had bariatric surgery. Anxiety depression. She follows with her territory outside sales manager . He thinks her ejection fraction is around 50%. Patient has noticed for last over to 3 weeks that she does get dizzy specially sitting up or standing up. Not when lying down. She presents as an episode of nearly passing out. Has had some episodes of chest pressure intermittently.. She also discussion of breath. Patient is a previous smoker. Does have wheezing. Denies any edema no fever no chills. Review of systems: GEN.: Tired EYES: None HEENT: None NECK: None RESPIRATORY: As above CARDIOVASCULAR: As above GASTROINTESTINAL: None GENITOURINARY: None MUSCULOSKELETAL: Joint pains including lower back pain LYMPHATICS: None HEMATOLOGICAL: None PSYCHIATRY: None NEUROLOGICAL: None Past medical history to include: Hyperlipidemia, hypertension, Hodgkin's lymphoma treated with chemo and radiation 2004, morbid obesity, bariatric surgery, anxiety depression Social history: Patient stopped smoking in 2000. Smoked about 23 years. No alcohol. Physical examination: VITAL SIGNS: 98.3, 101, 20, 1 4699, 99% room air GENERAL: BMI 60.4, declining but awake slightly anxious. EYES: Pupils equal. Conjunctiva normal. HEENT: External appearance of nose and ears normal, oral cavity grossly normal. NECK: JVD unable to assess; masses not palpable. HEART: First and second heart sounds are normal; no edema. LUNGS: Respiratory rate increased; distant breath sounds. ABDOMEN: Soft, nontender, liver spleen not palpable, no masses palpable. PSYCH: Alert and oriented x3; mood and affect likely anxiousl. MUSCULOSKELETAL:No Clubbing/cyanosis;muscles-grossly intact. OA NEUROLOGICAL: Cranial nerves grossly intact; no facial asymmetry, power and sensation grossly intact. LYMPHATICS: No lymph nodes palpable in the axilla and neck INVESTIGATIONS, reviewed in the clinical context: May 17: White count 13.5 hemoglobin 13.9 platelets 25 sodium 137 potassium 4.8 BUN 48 creatinine 1.5 to Troponin I 0.024, 0.022, 0.021 ProBNP 555 EKG tracing personally reviewed by nj-sinus rhythm. Right bundle-branch block Chest x-ray film personally reviewed by me-underpenetrated. No obvious abnormality CTA: No evidence of PE Assessment and plan: -Syncope in a patient is been having symptoms of getting dizzy lightheaded especially in sitting and standing up. [place] to be orthostatic. Also note patient's. Creatinine is elevated. Element of dehydration. Gentle hydration. -Hyperlipidemia Lipitor 20 mg daily at bedtime -Essential hypertension Coreg 25 mg twice a day -Chronic kidney disease stage III from nephrosclerosis and some element of dehydration Outpatient follow-up with renal function -Restless legs syndrome Requip 1 mg -Anxiety depression Effexor X April 25 milligrams a day. Wellbutrin SR 150 mg twice a day Xanax when necessary -Primary osteoarthritis multiple joints including lower back [place] 10 when necessary. -Chronic insomnia for medical reasons Lunesta 3 mg daily at bedtime -Morbid obesity BMI 60.4 Weight loss measures Orthostatic have been ordered. Gentle hydration. Cardiology consulted. Patient wishes to follow-up with her own territory outside sales manager. Past Medical History Past Medical History: Cancer, Hyperlipidemia, Hypertension Additional Past Medical History / Comment(s): HODGKIN'S LYMPHOMA-WITH CHEMO and radiation dx in 2004, chemo and radiation in 2005. ENVIRONMENTAL ALLERGIES History of Any Multi-Drug Resistant Organisms: MRSA Date of last positivie culture/infection: 06/2005 MDRO Source:: CHEMO PORT Past Surgical History: Bariatric Surgery, Cholecystectomy, Hernia Repair, Hysterectomy, Joint Replacement, Orthopedic Surgery, Tonsillectomy Additional Past Surgical History / Comment(s): CHEMO PORT X 2, I & D LT FOOT R/T SEPSIS FROM INFECTED CHEMO PORT. COLONOSCOPY. BILAT CATARACTS REMOVED WITH LENS IMPLANTS. LX NODE BX IN NECK. BILAT TKA, lap band 2008, left rotator cuff repair 2008, right carpal tunnel repair 2017, left upper arm mass removed 2020 Past Anesthesia/Blood Transfusion Reactions: No Reported Reaction Past Psychological History: Anxiety, Depression Smoking Status: Former smoker Past Alcohol Use History: None Reported Additional Past Alcohol Use History / Comment(s): QUIT SMOKING 2000 Past Drug Use History: None Reported - Past Family History Mother Family Medical History: Cancer Father Family Medical History: Cancer Medications and Allergies Home Medications Medication Instructions Recorded Confirmed Type ALPRAZolam [Xanax] 0.25 mg PO TID PRN 04/14/15 05/17/23 History Aspirin 81 mg PO HS 04/14/15 05/17/23 History HYDROcodone/APAP 10-325MG [[place] 1 tab PO DAILY 04/14/15 05/17/23 History 10-325] buPROPion SR [Wellbutrin SR] 150 mg PO BID 04/14/15 05/17/23 History Eszopiclone [Lunesta] 3 mg PO HS 01/02/20 05/17/23 History Lutein 20 mg PO DAILY@1200 01/02/20 05/17/23 History Multivitamin [Multivitamins Adult 1 tab PO DAILY 01/02/20 05/17/23 History Gummies] Venlafaxine HCl [Effexor XR] 225 mg PO DAILY 01/02/20 05/17/23 History Atorvastatin [Lipitor] 20 mg PO HS 05/17/23 05/17/23 History Cetirizine HCl [Zyrtec] 10 mg PO DAILY 05/17/23 05/17/23 History Cholecalciferol [Vitamin D3 (125 125 mcg PO DAILY 05/17/23 05/17/23 History Mcg = 5000 Iu)] HYDROcodone/APAP 10-325MG [[place] 1 tab PO BID PRN 05/17/23 05/17/23 History 10-325] carvediloL [Coreg] 25 mg PO BID 05/17/23 05/17/23 History rOPINIRole HCL [Requip] 1 mg PO DAILY@1300 05/17/23 05/17/23 History Albuterol Sulfate [Albuterol 1 puff PO Q4-6H #8.5 gm 05/18/23 Rx Sulfate Hfa] Bumetanide [BUMEX] 1 mg PO DAILY@1300 #0 05/18/23 05/17/23 Rx Fluticasone Propion/Salmeterol 1 inhalation PO BID #1 each 05/18/23 Rx [Advair 250-50 Diskus] Allergies Allergy/AdvReac Type Severity Reaction Status Date / Time nickel Allergy Severe Rash/Hives Verified 05/17/23 20:13 psyllium Allergy Rash/Hives Verified 05/17/23 20:13 Physical Exam Vitals: Vital Signs Temp Pulse Pulse Resp BP BP Pulse Ox 05/18/23 07:00 97.8 F 95 16 134/79 95 05/18/23 03:44 98.2 F 102 H 19 163/80 97 05/18/23 03:00 104 H 18 126/69 96 05/18/23 02:00 95 18 130/68 96 05/18/23 01:00 95 14 121/78 95 05/18/23 00:00 99 15 116/68 94 L 05/17/23 22:59 104 H 18 138/80 94 L 05/17/23 21:53 109 H 17 112/73 96 05/17/23 21:00 108 H 16 120/69 95 05/17/23 19:16 98 18 148/82 99 05/17/23 15:31 98.3 F 101 H 20 146/89 99 Intake and Output 05/17/23 05/18/23 05/18/23 22:59 06:59 14:59 Other: # Voids 2 Weight 159.665 kg 159.665 kg Results CBC & Chem 7: 05/17/23 15:42 05/17/23 15:42 Labs: Abnormal Lab Results - Last 24 Hours (Table) 05/17/23 05/17/23 05/17/23 Range/Units 15:42 15:42 15:42 WBC 13.5 H (3.8-10.6) k/uL Neutrophils # 10.8 H (1.3-7.7) k/uL APTT 18.2 L (22.0-30.0) sec D-Dimer 1.18 H (<0.60) mg/L FEU BUN 48 H (7-17) mg/dL Creatinine 1.52 H (0.52-1.04) mg/dL Glucose 109 H (74-99) mg/dL Calcium 10.3 H (8.4-10.2) mg/dL ALT 35 H (4-34) U/L Thrombosis Risk Factor Assmnt - Choose All That Apply Any of the Below Risk Factors Present?: Yes Each Factor Represents 1 point: Obesity (BMI >25) Each Risk Factor Represents 2 Points: Age 61-74 years Other congenital or acquired thrombophilia - If yes, enter type in comment: No Thrombosis Risk Factor Assessment Total Risk Factor Score: 3 Thrombosis Risk Factor Assessment Level: Moderate Risk
--- NOTE | 2023-05-18 17:05 | P.DS ---
Providers Date of admission: 05/17/23 21:22 Expected date of discharge: 05/18/23 Attending physician: Bob Diggs Consults: 05/17/23 21:22 Consult Physician Urgent Consulting Provider: [facility] Consult Reason/Comments: dyspnea, chest pain, dizziness Do you want consulting provider notified?: Yes Primary care physician: [facility] Course: Chief Complaint: Near syncope This is a pleasant 62-year-old patient who follows with Dr. Ly. Chronic stable medical conditions include hyperlipidemia, hypertension, arches lymphoma treated with chemotherapy and radiation in 2004. Has had bariatric surgery. Anxiety depression. She follows with her manager utilization review . He thinks her ejection fraction is around 50%. Patient has noticed for last over to 3 weeks that she does get dizzy specially sitting up or standing up. Not when lying down. She presents as an episode of nearly passing out. Has had some episodes of chest pressure intermittently.. She also discussion of breath. Patient is a previous smoker. Does have wheezing. Denies any edema no fever no chills. Patient was found to be orthostatic. Told the patient to change her Bumex to 0.5 mg the afternoon and take daily weights. Also patient put on fluid restriction 1800 mL a day. If she notices increased shortness of breath or gaining weight increase the Bumex to 1 mg. Patient wishes to follow up with her manager utilization review who does adjust her diuretics. Past medical history to include: Hyperlipidemia, hypertension, Hodgkin's lymphoma treated with chemo and radiation 2004, morbid obesity, bariatric surgery, anxiety depression Social history: Patient stopped smoking in 2000. Smoked about 23 years. No alcohol. Physical examination: VITAL SIGNS: 100/63 GENERAL: BMI 60.4, reclining but awake slightly anxious. EYES: Pupils equal. Conjunctiva normal. HEENT: External appearance of nose and ears normal, oral cavity grossly normal. NECK: JVD unable to assess; masses not palpable. HEART: First and second heart sounds are normal; no edema. LUNGS: Respiratory rate increased; distant breath sounds. ABDOMEN: Soft, nontender, liver spleen not palpable, no masses palpable. PSYCH: Alert and oriented x3; mood and affect likely anxiousl. MUSCULOSKELETAL:No Clubbing/cyanosis;muscles-grossly intact. OA NEUROLOGICAL: Cranial nerves grossly intact; no facial asymmetry, power and sensation grossly intact. LYMPHATICS: No lymph nodes palpable in the axilla and neck INVESTIGATIONS, reviewed in the clinical context: May 17: White count 13.5 hemoglobin 13.9 platelets 25 sodium 137 potassium 4.8 BUN 48 creatinine 1.5 to Troponin I 0.024, 0.022, 0.021 ProBNP 555 EKG tracing personally reviewed by me-sinus rhythm. Right bundle-branch block Chest x-ray film personally reviewed by me-underpenetrated. No obvious abnormality CTA: No evidence of PE Assessment and plan: -Syncope in a patient is been having symptoms of getting dizzy lightheaded especially in sitting and standing up. Probably dehydration. Patient told to hold her diuretic today. Start 0.5 mg at 4 PM daily. Did take Bumex as discussed -Hyperlipidemia Lipitor 20 mg daily at bedtime -Essential hypertension Coreg 25 mg twice a day -Chronic kidney disease stage III from nephrosclerosis and some element of dehydration Outpatient follow-up with renal function -Restless legs syndrome Requip 1 mg -Anxiety depression Effexor X April 27 milligrams a day. Wellbutrin SR 150 mg twice a day Xanax when necessary -Primary osteoarthritis multiple joints including lower back [place] 10 when necessary. -Chronic insomnia for medical reasons Lunesta 3 mg daily at bedtime -Morbid obesity BMI 60.4 Weight loss measures Disposition: Home Plan - Discharge Summary Discharge Rx Participant: No New Discharge Prescriptions: New Fluticasone Propion/Salmeterol [Advair 250-50 Diskus] 1 inhalation PO BID #1 each Albuterol Sulfate [Albuterol Sulfate Hfa] 1 puff PO Q4-6H #8.5 gm Continue Aspirin 81 mg PO HS buPROPion SR [Wellbutrin SR] 150 mg PO BID HYDROcodone/APAP 10-325MG [[place] 10-325] 1 tab PO DAILY ALPRAZolam [Xanax] 0.25 mg PO TID PRN PRN Reason: Pain Eszopiclone [Lunesta] 3 mg PO HS Venlafaxine HCl [Effexor XR] 225 mg PO DAILY Multivitamin [Multivitamins Adult Gummies] 1 tab PO DAILY [place] 20 mg PO DAILY@1200 rOPINIRole HCL [Requip] 1 mg PO DAILY@1300 carvediloL [Coreg] 25 mg PO BID Atorvastatin [Lipitor] 20 mg PO HS Cetirizine HCl [Zyrtec] 10 mg PO DAILY HYDROcodone/APAP 10-325MG [[place] 10-325] 1 tab PO BID PRN PRN Reason: Pain Cholecalciferol [Vitamin D3 (125 Mcg = 5000 Iu)] 125 mcg PO DAILY Changed Bumetanide [BUMEX] 1 mg PO DAILY@1300 #0 Discharge Medication List ALPRAZolam [Xanax] 0.25 mg PO TID PRN 04/14/15 [History] Aspirin 81 mg PO HS 04/14/15 [History] HYDROcodone/APAP 10-325MG [[place] 10-325] 1 tab PO DAILY 04/14/15 [History] buPROPion SR [Wellbutrin SR] 150 mg PO BID 04/14/15 [History] Eszopiclone [Lunesta] 3 mg PO HS 01/02/20 [History] Lutein 20 mg PO DAILY@1200 01/02/20 [History] Multivitamin [Multivitamins Adult Gummies] 1 tab PO DAILY 01/02/20 [History] Venlafaxine HCl [Effexor XR] 225 mg PO DAILY 01/02/20 [History] Atorvastatin [Lipitor] 20 mg PO HS 05/17/23 [History] Cetirizine HCl [Zyrtec] 10 mg PO DAILY 05/17/23 [History] Cholecalciferol [Vitamin D3 (125 Mcg = 5000 Iu)] 125 mcg PO DAILY 05/17/23 [History] HYDROcodone/APAP 10-325MG [[place] 10-325] 1 tab PO BID PRN 05/17/23 [History] carvediloL [Coreg] 25 mg PO BID 05/17/23 [History] rOPINIRole HCL [Requip] 1 mg PO DAILY@1300 05/17/23 [History] Albuterol Sulfate [Albuterol Sulfate Hfa] 1 puff PO Q4-6H #8.5 gm 05/18/23 [Rx] Bumetanide [BUMEX] 1 mg PO DAILY@1300 #0 05/18/23 [Rx] Fluticasone Propion/Salmeterol [Advair 250-50 Diskus] 1 inhalation PO BID #1 each 05/18/23 [Rx] Follow up Appointment(s)/Referral(s): dr zurdo [Other] - 1 Week Robert Ly DO [Primary Care Provider] - 1-2 days Activity/Diet/Wound Care/Special Instructions: fluid restrict 1800 cc/day send home with incentive spirometer Discharge Disposition: HOME SELF-CARE
[2023-05-18] MEDS ORDERED: TEMAZEPAM 30 MG CAP PO SCH (21:00)
[2023-05-18] MEDS ORDERED: ASPIRIN 81 MG PO SCH (21:00)
[2023-05-19] MEDS ORDERED: SPIRONOLACTONE 25 MG TAB PO SCH (09:00)
== END 2023-05-18 13:57 | disposition home or self-care (01) ==
LOC: EC 15:28 → 6NMEDSUR 21:22
PROVIDERS: ADMIT Hospitalist; ATTEND Hospitalist
DX: R55 Syncope and collapse (principal); R07.89 Other chest pain; N17.9 Acute kidney failure, unspecified; I13.0 Hypertensive heart and chronic kidney disease with heart failure and stage 1 through stage 4 chronic kidney disease, or unspecified chronic kidney disease; I50.32 Chronic diastolic (congestive) heart failure; N18.30 Chronic kidney disease, stage 3 unspecified; E78.5 Hyperlipidemia, unspecified; R79.89 Other specified abnormal findings of blood chemistry; G47.33 Obstructive sleep apnea (adult) (pediatric); I08.1 Rheumatic disorders of both mitral and tricuspid valves; F32.A Depression, unspecified; F41.9 Anxiety disorder, unspecified; I45.10 Unspecified right bundle-branch block; G25.81 Restless legs syndrome; F51.04 Psychophysiologic insomnia; M47.819 Spondylosis without myelopathy or radiculopathy, site unspecified; E66.01 Morbid (severe) obesity due to excess calories; Z68.44 Body mass index [BMI] 60.0-69.9, adult; Z79.82 Long term (current) use of aspirin; Z79.899 Other long term (current) drug therapy; Z91.048 Other nonmedicinal substance allergy status; Z85.71 Personal history of Hodgkin lymphoma; Z86.16 Personal history of COVID-19; Z92.3 Personal history of irradiation; Z92.21 Personal history of antineoplastic chemotherapy; Z86.14 Personal history of Methicillin resistant Staphylococcus aureus infection; Z90.49 Acquired absence of other specified parts of digestive tract; Z90.710 Acquired absence of both cervix and uterus; Z98.84 Bariatric surgery status; Z96.653 Presence of artificial knee joint, bilateral; Z96.1 Presence of intraocular lens; Z98.42 Cataract extraction status, left eye; Z98.41 Cataract extraction status, right eye; Z98.890 Other specified postprocedural states; Z87.891 Personal history of nicotine dependence; Z80.9 Family history of malignant neoplasm, unspecified
CPT/HCPCS: 99285; 36415; 93005; 85379; 83880; 80053; 83605; 83735; 84484 ×2; 85025; 85610; 85730; 71046; 71275; G0378 ×2; S0106; Q9967

== ENCOUNTER → 2023-06-03 | Outpatient (CLI) | payer MEDICARE ==
[2023-06-04 02:09] LABS: HCT 39.5 % (37.2-46.3); HGB 12.4 g/dL (12.0-15.0); MCH 31.6 pg (27.0-32.0); MCHC 31.4 g/dL (32.0-37.0); MCV 100.5 FL (80.0-97.0); Mean Platelet Volume 10.1 FL (9.5-12.2); NRBC Per 100 WBC 0 X 10*3/uL (0.00-0.01); Platelet Count 398 X 10*3/uL (140-440); RBC 3.93 X 10*6/uL (4.10-5.20); RDW 14.2 % (11.5-14.5)
[2023-06-04 02:57] LABS: ALT 33 U/L (8-44); AST 19 U/L (13-35); BUN/Creat Ratio 19.81 Ratio (12.00-20.00); Blood Urea Nitrogen 31.7 mg/dL (9.0-27.0); Calcium 10.4 mg/dL (8.7-10.3); Carbon Dioxide 24.1 mmol/L (21.6-31.8); Chloride 100 mmol/L (96-109); Glucose 128 mg/dL (70-110); Potassium 4.1 mmol/L (3.5-5.5); Sodium 142 mmol/L (135-145)
== END | disposition home or self-care (01) ==
LOC: LABWHC1 15:18
PROVIDERS: ATTEND Family Medicine
DX: I10 Essential (primary) hypertension (principal); E66.01 Morbid (severe) obesity due to excess calories
CPT/HCPCS: 36415; 80048; 82306; 83036; 84439; 84443; 84450; 84460; 85027

== ENCOUNTER → 2023-06-03 | Outpatient (CLI) | payer MEDICARE ==
--- NOTE | 2023-06-05 15:26 | XR ---
EXAMINATION TYPE: XR sacrum coccyx DATE OF EXAM: 06/03/2023 COMPARISON: None HISTORY: Pain from fall TECHNIQUE: Three-view sacrococcygeal region FINDINGS: Sacroiliac joints are patent. No acute fracture is evident. IMPRESSION: 1. Normal sacrum and coccyx
== END | disposition home or self-care (01) ==
LOC: RADXRMAIN 16:10
PROVIDERS: ATTEND Family Medicine
DX: M53.3 Sacrococcygeal disorders, not elsewhere classified (principal); W19.XXXA Unspecified fall, initial encounter
CPT/HCPCS: 72220

== ENCOUNTER → 2023-06-15 | Outpatient (CLI) | payer MEDICARE ==
[2023-06-15 15:29] LABS: BUN/Creat Ratio 27.91 Ratio (12.00-20.00); Blood Urea Nitrogen 30.7 mg/dL (9.0-27.0); Calcium 10.2 mg/dL (8.7-10.3); Carbon Dioxide 23.8 mmol/L (21.6-31.8); Chloride 104 mmol/L (96-109); Glucose 131 mg/dL (70-110); Potassium 5.1 mmol/L (3.5-5.5); Sodium 139 mmol/L (135-145)
== END | disposition home or self-care (01) ==
LOC: LABWHC1 09:55
PROVIDERS: ATTEND Family Medicine
DX: I10 Essential (primary) hypertension (principal)
CPT/HCPCS: 36415; 80048

== ENCOUNTER → 2023-09-19 | Outpatient (CLI) | payer MEDICARE ==
[2023-09-19 20:32] LABS: HCT 47.4 % (37.2-46.3); HGB 14.4 g/dL (12.0-15.0); MCH 31.3 pg (27.0-32.0); MCHC 30.4 g/dL (32.0-37.0); Mean Platelet Volume 10.9 FL (9.5-12.2); NRBC Per 100 WBC 0 X 10*3/uL (0.00-0.01); Platelet Count 424 X 10*3/uL (140-440); RDW 13.6 % (11.5-14.5); WBC 11.26 X 10*3/uL (4.50-10.00)
[2023-09-19 22:23] LABS: BUN/Creat Ratio 16.13 Ratio (12.00-20.00); Blood Urea Nitrogen 24.2 mg/dL (9.0-27.0); Glucose 192 mg/dL (70-110)
[2023-09-19 22:24] LABS: ALT 29 U/L (8-44); AST 22 U/L (13-35); Calcium 11.2 mg/dL (8.7-10.3); Carbon Dioxide 22.3 mmol/L (21.6-31.8); Chloride 102 mmol/L (96-109); Potassium 4.2 mmol/L (3.5-5.5); Sodium 143 mmol/L (135-145)
== END | disposition home or self-care (01) ==
LOC: LABWHC1 12:09
PROVIDERS: ATTEND Family Medicine
DX: I10 Essential (primary) hypertension (principal); E11.9 Type 2 diabetes mellitus without complications; E66.01 Morbid (severe) obesity due to excess calories
CPT/HCPCS: 36415; 80048; 82607; 83036; 84439; 84443; 84450; 84460; 85027

== ENCOUNTER → 2023-09-19 | Outpatient (CLI) | payer MEDICARE ==
--- NOTE | 2023-09-20 12:19 | MM ---
Reason for Exam: Screening (asymptomatic). Last screening mammogram was performed 12 month(s) ago. Patient History: Menarche at age 12. Patient has no children. Left ovary removed at age 43. Right ovary removed at age 43. Hysterectomy at age 43. Postmenopausal. Other cancer, age 44. Cyst Aspiration on the Right side. 04/20/2004, Benign Stereotactic Core Biopsy on the right side. Paternal cousin had breast cancer under age 50. Paternal cousin had breast cancer at or over age 50. Paternal cousin had breast cancer at or over age 50. Risk Values: Funmilayo 5 year model risk: 2.1%. NCI Lifetime model risk: 8.4%. Prior Study Comparison: 11/07/2018 Bilateral Screening Mammogram, [facility]. 09/03/2021 Bilateral MG 3D screening mammo w/cad, [facility]. 09/15/2022 Bilateral MG 3D screening mammo w/cad, [facility]. Tissue Density: The breasts are almost entirely fatty. Findings: Analyzed By CAD. There is no suspicious group of microcalcifications or new suspicious mass. Benign-appearing calcifications bilaterally. Overall Assessment: Benign, BI-RAD 2 Management: Screening Mammogram of both breasts in [address] [facility] will attempt to contact patient to return for supplemental views and ultrasound if indicated. Patient should continue monthly self-breast exams. A clinical breast exam by your physician is recommended on an annual basis. This exam should not preclude additional follow-up of suspicious palpable abnormalities. Note on Funmilayo scores and lifetime risk: 1. A Funmilayo score greater than 3% is considered moderate risk. If this is the case, consider specialist referral to assess eligibility for a risk reducing agent. 2. If overall lifetime risk for the development of breast cancer is 20% or higher, the patient may qualify for future screening with alternating mammogram and breast MRI. Electronically signed and approved by: Kelvin Ladd DO
== END | disposition home or self-care (01) ==
LOC: RADMAMWWP 09:55
PROVIDERS: ATTEND Family Medicine
DX: Z12.31 Encounter for screening mammogram for malignant neoplasm of breast (principal); Z80.3 Family history of malignant neoplasm of breast; Z78.0 Asymptomatic menopausal state
CPT/HCPCS: 77063; 77067

== ENCOUNTER → 2023-09-19 | Outpatient (CLI) | payer MEDICARE ==
--- NOTE | 2023-09-19 11:52 | FL ---
EXAMINATION TYPE: FL UGI air w esophagus DATE OF EXAM: 09/19/2023 11:14 AM CLINICAL INDICATION:Female, 63 years old with history of K21.9 GASTROESOPHAGEAL REFLUX DISEASE; COMPARISON: 05/17/2023. TECHNIQUE: The procedure was explained and patient history elicited. All patient questions were ans wered prior to start of procedure. A geological scout radiograph of the abdomen was also reviewed. Multiple flu oroscopic spot images of the esophagus, stomach and duodenum were obtained following ingestion of liq uid barium and EZ-gas crystals. Fluoroscopic time: 41 seconds Radiographs taken: 42 DAP: 5270 cGycm2 FINDINGS: Upper GI examination: The geological scout abdominal radiograph demonstrates a normal bowel gas pattern without dilated loops of small or large bowel. There is no evidence for organomegaly or pneumoperitoneum. No abnormal calcificat ions. The visualized osseous structures are intact. Gastric lap band appears in appropriate position with angle of 36. There is delayed contrast entering the stomach through the gastric lap band. There is esophageal dysmotility with tertiary contractions present. No reflux identified. IMPRESSION: Gastric lap band in place which partially obstructs quick emptying of the esophagus. There is tertiar y contractions with esophageal dysmotility as a result.
== END | disposition home or self-care (01) ==
LOC: RADUSWWP 09:57
PROVIDERS: ATTEND Surgery
DX: K22.4 Dyskinesia of esophagus (principal); K21.9 Gastro-esophageal reflux disease without esophagitis; R13.19 Other dysphagia; Z98.84 Bariatric surgery status
CPT/HCPCS: 74246

== ENCOUNTER → 2023-09-28 | Outpatient (CLI) | payer MEDICARE ==
[2023-09-29 08:52] LABS: Protein, Total 6.3 g/dL (6.2-8.2)
[2023-09-29 11:31] LABS: Free Kappa Lt Chain Qnt, Serum 1.6 mg/dL (0.33-1.94); Free Lambda Lt Chain Qnt, Seru 0.91 mg/dL (0.57-2.63)
[2023-09-29 17:22] LABS: Albumin 3.92 g/dL (3.80-4.90); Gamma Globulin 0.33 g/dL (0.70-1.50)
== END | disposition home or self-care (01) ==
LOC: LABWHC1 09:41
PROVIDERS: ATTEND Family Medicine
DX: E83.51 Hypocalcemia (principal); R71.8 Other abnormality of red blood cells; R94.4 Abnormal results of kidney function studies
CPT/HCPCS: 36415; 82330; 83883; 83921; 83970; 84165

== ENCOUNTER → 2023-10-05 | Outpatient (CLI) | payer MEDICARE ==
[2023-10-05 15:48] LABS: Blood Urea Nitrogen 20.4 mg/dL (9.0-27.0); Calcium 10.6 mg/dL (8.7-10.3); Carbon Dioxide 24.8 mmol/L (21.6-31.8); Chloride 105 mmol/L (96-109); Glucose 130 mg/dL (70-110); Potassium 4.3 mmol/L (3.5-5.5); Sodium 143 mmol/L (135-145)
== END | disposition home or self-care (01) ==
LOC: LABWHC1 09:49
PROVIDERS: ATTEND Family Medicine
DX: D64.9 Anemia, unspecified (principal); E83.52 Hypercalcemia
CPT/HCPCS: 36415; 80048; 86334

== ENCOUNTER → 2023-10-20 | Outpatient (CLI) | payer MEDICARE ==
[2023-10-20 14:06] LABS: Creatinine,Urine Random 228.8 mg/dL; Protein/Creatinine Ratio,Urine 0.035
[2023-10-20 16:08] LABS: HCT 42.7 % (37.2-46.3); HGB 13.6 g/dL (12.0-15.0); MCH 31.9 pg (27.0-32.0); MCHC 31.9 g/dL (32.0-37.0); MCV 100.2 FL (80.0-97.0); Mean Platelet Volume 10.6 FL (9.5-12.2); NRBC Per 100 WBC 0 X 10*3/uL (0.00-0.01); Platelet Count 438 X 10*3/uL (140-440); RBC 4.26 X 10*6/uL (4.10-5.20); RDW 13.7 % (11.5-14.5); WBC 14.78 X 10*3/uL (4.50-10.00)
[2023-10-20 16:20] LABS: Appearance,Urine Cloudy (Clear); Bacteria,Urine None Seen (None Seen); Bilirubin,Urine Negative (Negative); Blood,Urine Negative (Negative); Calcium Oxalate Crystals,Urine Present (None Seen); Color,Urine Dark Yellow (Yellow); Ketones,Urine Trace (Negative); Nitrite,Urine Negative (Negative); Specific Gravity,Urine 1.033 (1.001-1.030)
[2023-10-20 16:23] LABS: ALT 25 U/L (8-44); AST 22 U/L (13-35); Albumin 4.7 g/dL (3.8-4.9); Albumin/Globulin Ratio 2.04 Ratio (1.60-3.17); Alkaline Phosphatase 64 U/L (41-126); BUN/Creat Ratio 22.82 Ratio (12.00-20.00); Blood Urea Nitrogen 25.1 mg/dL (9.0-27.0); Calcium 10.6 mg/dL (8.7-10.3); Carbon Dioxide 21.2 mmol/L (21.6-31.8); Chloride 103 mmol/L (96-109); Globulin 2.3 g/dL (1.6-3.3); Glucose 139 mg/dL (70-110); Magnesium 1.9 mg/dL (1.5-2.4); Potassium 4.2 mmol/L (3.5-5.5); Sodium 140 mmol/L (135-145); Total Bilirubin 0.4 mg/dL (0.3-1.2)
--- NOTE | 2023-10-20 17:16 | US ---
EXAMINATION TYPE: US kidneys/renal and bladder DATE OF EXAM: 10/20/2023 COMPARISON: US 2012 CLINICAL INDICATION: Female, 63 years old with history of R94.4 ABN RESULTS KIDNEY FUNCTION STUDIES; Abnormal results of kidney function studies. EXAM MEASUREMENTS: Right Kidney: 10.8 x 5.7 x 5.6 cm Left Kidney: 11.1 x 5.2 x 6.0 cm Right Kidney: Anechoic area seen laterally: 1.3 x 1.3 x 0.9 cm. Left Kidney: Indistinct, isoechoic area seen at mid versus normal tissue measurin.4 x 3.1 x 2.4 c m. Bladder: Unable to visualize. Patient chose not to attempt drinking anymore water to fill bladder. Bilateral Jets seen: No IMPRESSION: 1. No renal atrophy. 2. No renal calcification, solid renal mass or hydronephrosis. 3. Urinary bladder not evaluated due to nondistention.
== END | disposition home or self-care (01) ==
LOC: RADUSWWP 11:11
PROVIDERS: ATTEND Family Medicine
DX: R94.4 Abnormal results of kidney function studies (principal)
CPT/HCPCS: 76770; 80053; 81001; 82570; 83735; 84156; 85027

== ENCOUNTER → 2023-10-24 | Outpatient (CLI) | payer MEDICARE ==
[2023-10-24 18:20] LABS: Basophils # (A) 0.05 X 10*3/uL (0.00-0.10); Basophils % (A) 0.4 %; Eosinophils # (A) 0.21 X 10*3/uL (0.04-0.35); Eosinophils % (A) 1.8 %; HCT 43.6 % (37.2-46.3); HGB 13.7 g/dL (12.0-15.0); Lymphocytes # (A) 2.41 X 10*3/uL (0.90-5.00); Lymphocytes % (A) 20.8 %; MCH 31.2 pg (27.0-32.0); MCHC 31.4 g/dL (32.0-37.0); MCV 99.3 FL (80.0-97.0); Mean Platelet Volume 10.6 FL (9.5-12.2); Monocytes # (A) 1.41 X 10*3/uL (0.20-1.00); Monocytes % (A) 12.2 %; NRBC Per 100 WBC 0 X 10*3/uL (0.00-0.01); Neutrophils # (A) 7.47 X 10*3/uL (1.80-7.70); Neutrophils % (A) 64.4 %; Platelet Count 394 X 10*3/uL (140-440); RBC 4.39 X 10*6/uL (4.10-5.20); RDW 13.4 % (11.5-14.5)
== END | disposition home or self-care (01) ==
LOC: LABWHC1 14:31
PROVIDERS: ATTEND Family Medicine
DX: R89.9 Unspecified abnormal finding in specimens from other organs, systems and tissues (principal)
CPT/HCPCS: 36415; 82310; 85025

== ENCOUNTER → 2023-11-04 | Outpatient (CLI) | payer MEDICARE ==
[2023-11-04 10:59] LABS: Ionized Calcium 5.3 mg/dL (4.5-5.3)
[2023-11-04 14:38] LABS: Calcium 10.4 mg/dL (8.7-10.3)
== END | disposition home or self-care (01) ==
LOC: LABWHC1 10:07
PROVIDERS: ATTEND Family Medicine
DX: E83.52 Hypercalcemia (principal)
CPT/HCPCS: 36415; 82310; 82330; 83970

== ENCOUNTER → 2023-11-17 | Outpatient (CLI) | payer MEDICARE ==
--- NOTE | 2023-11-17 12:05 | P.PROGSL ---
Subjective DATE: 11/17/2023 FOLLOW UP VISIT. Patient with obstructive sleep apnea hypopnea syndrome return to sleep center for follow-up visit. Information from previous visit have been reviewed. Patient is using PAP equipment every night for the whole night, getting PAP supplies in time. The patient does not have significant problems with the mask, PAP unit and humidification. [place] sleepiness scale is 3, which is normal. I checked information from PAP unit. PAP unit pressure 8 cm H2O. Usage is 100% for more then 4 hours, average 7.2 hours per night. Leak is 17 l/m, which is in acceptable range. Apnea Hypopnea Index is 2.2, which is normal. MEDICATIONS: Please see below During physical exam: GENERAL: A pleasant patient without any distress. VITAL SIGNS: Please see below, weight 343 pounds, BMI 59.8. HEENT: PERRLA, EOMI.low position of soft palate, Mallapati 3 . NECK: Supple. No JVD. LUNGS: Clear to percussion and to auscultation. Good air exchange. No wheezing or rhonchi. HEART: S1, S2 regular. ABDOMEN: Soft and nontender. Obese EXTREMITIES: No clubbing or cyanosis. WRAP CHECKER: Awake, alert, and oriented x3. No focal deficit. Impressions: 1. Obstructive sleep apnea-hypopnea syndrome. Patient demonstrated great compliance with treatment, benefiting from treatment. 2. Obesity, BMI 59.8, patient lost 20 pounds comparing with previous visit. 3. Restless leg syndrome. 4. Periodic limb movements, on treatment with Requip no problems. 5. History of Hodgkin lymphoma. 6. Hypertension. 7. Hyperlipidemia. 8. Status post bilateral knee replacement. 9. Allergies. 10. Status post tonsillectomy. 11. Status post hysterectomy. Plan: 1. Continue using PAP equipment every night for the whole night. 2. To change air filter at least 1-2 times per month. 3. PAP unit should stay lower then position of the head. 4. Advised patient to remove all remaining water from humidifier canister daily and make it dry after each usage. Refill canister with fresh distilled water before each usage. 5. Sleep hygiene with regular time in bed for at least 8 hours. 6. Precautions related to driving. No driving if feel any sleepiness. 7. I will maintain prescription for PAP supplies including mask, tube, filters. 8. Watching and losing weight. 9. Follow up visit in 6 months or earlier if patient has any problems. Thank you very much for allowing me to participate in the management of your patient. Willie Long MD, PhD, FAASM. Diplomat of [employer], Sleep Medicine Board by [employer] [place] Developer of [facility] [place] Objective - Vital Signs Vital Signs: Vital Signs Temp 98 F 11/17/23 11:37 Pulse 102 H 11/17/23 11:37 Resp 20 11/17/23 11:37 BP 160/80 11/17/23 11:37 Pulse Ox 98 11/17/23 11:37 FiO2 Intake & Output 11/16/23 11/17/23 11/17/23 18:59 06:59 18:59 Weight 155.582 kg Home Medications: Home Medications Medication Instructions Recorded Confirmed Type ALPRAZolam [Xanax] 0.25 mg PO TID PRN 04/14/15 11/17/23 History Aspirin 81 mg PO HS 04/14/15 11/17/23 History HYDROcodone/APAP 10-325MG [[place] 1 tab PO DAILY 04/14/15 11/17/23 History 10-325] buPROPion SR [Wellbutrin SR] 150 mg PO BID 04/14/15 11/17/23 History Eszopiclone [Lunesta] 3 mg PO HS 01/02/20 11/17/23 History Lutein 20 mg PO DAILY@1200 01/02/20 11/17/23 History Multivitamin [Multivitamins Adult 1 tab PO DAILY 01/02/20 11/17/23 History Gummies] Venlafaxine HCl [Effexor XR] 225 mg PO DAILY 01/02/20 11/17/23 History Atorvastatin [Lipitor] 20 mg PO HS 05/17/23 11/17/23 History Cetirizine HCl [Zyrtec] 10 mg PO DAILY 05/17/23 11/17/23 History Cholecalciferol [Vitamin D3 (125 125 mcg PO DAILY 05/17/23 11/17/23 History Mcg = 5000 Iu)] HYDROcodone/APAP 10-325MG [[place] 1 tab PO BID PRN 05/17/23 11/17/23 History 10-325] carvediloL [Coreg] 25 mg PO BID 05/17/23 11/17/23 History rOPINIRole HCL [Requip] 1 mg PO DAILY@1300 05/17/23 11/17/23 History Albuterol Sulfate [Albuterol 1 puff PO Q4-6H #8.5 gm 05/18/23 11/17/23 Rx Sulfate Hfa] Bumetanide [BUMEX] 1 mg PO DAILY@1300 #0 05/18/23 11/17/23 Rx Fluticasone Propion/Salmeterol 1 inhalation PO BID #1 each 05/18/23 11/17/23 Rx [Advair 250-50 Diskus]
[2023-11-17 12:09] VITALS: BP 160/80; PULSE 102; RESP 20; TEMP 98
== END ==
LOC: 3 N SLEEP 11:07
PROVIDERS: ATTEND Internal Medicine
DX: G47.33 Obstructive sleep apnea (adult) (pediatric) (principal); G47.61 Periodic limb movement disorder; E66.9 Obesity, unspecified; Z68.43 Body mass index [BMI] 50.0-59.9, adult; G25.81 Restless legs syndrome; Z91.09 Other allergy status, other than to drugs and biological substances; Z88.8 Allergy status to other drugs, medicaments and biological substances; Z87.891 Personal history of nicotine dependence
CPT/HCPCS: 99212

== ENCOUNTER → 2023-12-16 | Outpatient (CLI) | payer MEDICARE | END | disposition home or self-care (01) | LOC: LABWHC1 09:31 | PROVIDERS: ATTEND Internal Medicine Nephrology | DX: E83.52 Hypercalcemia (principal); N18.31 Chronic kidney disease, stage 3a | CPT/HCPCS: 36415; 82310 ==

== ENCOUNTER → 2023-12-30 | Outpatient (CLI) | payer MEDICARE ==
--- NOTE | 2023-12-30 15:29 | NM ---
EXAMINATION TYPE: NM parathyroid DATE OF EXAM: 12/30/2023 COMPARISON: NONE CLINICAL INDICATION: Female, 63 years old with history of E21.3 HYPERPARATHYROIDISM, UNSPECIFIED; TECHNIQUE: Following administration of 23.6 mCi Tc99m Sestamibi. Anterior projection images of the neck and ches t were obtained 15 minutes and 3 hours post injection FINDINGS: Thyroid tracer washout: Delayed images demonstrate near-complete tracer washout from the thyroid. Parathyroid uptake: None. The two-hour delayed images do not demonstrate any focal abnormal persisten t uptake in the region of the parathyroid glands to suggest parathyroid adenoma. Normal uptake: There is physiological tracer uptake in the myocardium, liver, salivary glands, and th yroid gland. IMPRESSION: Normal parathyroid imaging study. No evidence for mediastinal uptake to suggest mediastinal parathyro id adenoma
== END | disposition home or self-care (01) ==
LOC: RADNMMAIN 10:52
PROVIDERS: ATTEND Family Medicine
DX: E21.3 Hyperparathyroidism, unspecified (principal)
CPT/HCPCS: 78070; A9500

== ENCOUNTER → 2024-01-10 | Outpatient (CLI) | payer MEDICARE ==
[2024-01-10 10:17] LABS: Basophils % (A) 0 %; Eosinophils # (A) 0.2 k/uL (0-0.7); Eosinophils % (A) 1 %; HGB 14.3 gm/dL (11.4-16.0); Lymphocytes # (A) 1.8 k/uL (1.0-4.8); Lymphocytes % (A) 16 %; MCH 31.5 pg (25.0-35.0); MCHC 31.1 g/dL (31.0-37.0); MCV 101.3 fL (80.0-100.0); Mean Platelet Volume 7.9; Monocytes # (A) 0.8 k/uL (0-1.0); Monocytes % (A) 7 %; Neutrophils # (A) 8.3 k/uL (1.3-7.7); Neutrophils % (A) 74 %; Platelet Count 415 k/uL (150-450); RBC 4.54 m/uL (3.80-5.40); RDW 12.8 % (11.5-15.5); WBC 11.2 k/uL (3.8-10.6)
[2024-01-10 15:52] LABS: Appearance,Urine Clear (Clear); Bilirubin,Urine Negative (Negative); Blood,Urine Negative (Negative); Color,Urine Yellow (Yellow); Ketones,Urine Negative (Negative); Nitrite,Urine Negative (Negative); Specific Gravity,Urine 1.017 (1.001-1.030); Urobilinogen,Urine 0.2 E.U./DL
[2024-01-10 18:11] LABS: Microalbumin Creatinine Ratio <24 mg/g Cr (0-30); Urine Creatinine 49.7 mg/dL (28.0-217.0)
[2024-01-10 18:32] LABS: % Iron Saturation 18.95 (12.00-45.00); Albumin 4.6 g/dL (3.8-4.9); BUN/Creat Ratio 26.09 Ratio (12.00-20.00); Blood Urea Nitrogen 28.7 mg/dL (9.0-27.0); Calcium 10.2 mg/dL (8.7-10.3); Carbon Dioxide 18.5 mmol/L (21.6-31.8); Chloride 104 mmol/L (96-109); Glucose 153 mg/dL (70-110); Iron 97 UG/DL (50-170); Phosphorus 3.7 mg/dL (2.4-5.1); Potassium 4.5 mmol/L (3.5-5.5); Sodium 140 mmol/L (135-145); Total Iron Binding Capacity 512 UG/DL (228-460); Uric Acid 6.2 mg/dL (2.9-7.7)
[2024-01-11 11:47] LABS: Free Kappa Lt Chain Qnt, Urine 2.43 mg/dL (0.00-3.29); Free Lambda Lt Chain Qt, Urine 0.24 mg/dL (0.00-0.38)
== END | disposition home or self-care (01) ==
LOC: LABWHC1 09:24
PROVIDERS: ATTEND Internal Medicine Nephrology
DX: E55.9 Vitamin D deficiency, unspecified (principal); M10.9 Gout, unspecified; N39.0 Urinary tract infection, site not specified; N18.31 Chronic kidney disease, stage 3a; D63.1 Anemia in chronic kidney disease; R80.9 Proteinuria, unspecified
CPT/HCPCS: 36415; 80048; 81003; 82040; 82043; 82306; 82570; 83540; 83550; 83735; 83883; 83970; 84100; 84550; 85025; 86334; 86335

== ENCOUNTER → 2024-01-25 | Outpatient (CLI) | payer MEDICARE ==
[2024-01-25 15:28] LABS: Blood Urea Nitrogen 21.7 mg/dL (9.0-27.0); Calcium 10.2 mg/dL (8.7-10.3); Carbon Dioxide 23.5 mmol/L (21.6-31.8); Chloride 105 mmol/L (96-109); Glucose 145 mg/dL (70-110); Potassium 4.3 mmol/L (3.5-5.5); Sodium 143 mmol/L (135-145)
== END | disposition home or self-care (01) ==
LOC: LABWHC1 11:17
PROVIDERS: ATTEND Internal Medicine Nephrology
DX: N18.31 Chronic kidney disease, stage 3a (principal)
CPT/HCPCS: 36415; 80048

== ENCOUNTER → 2024-02-02 | Outpatient (CLI) | payer MEDICARE ==
[2024-02-02 17:46] LABS: Appearance,BF Bloody; Color,BF Red
[2024-02-02 18:07] LABS: Nucleated Cells, Body Fluid 15500 /uL; RBC, Body Fluid 203500 /uL
[2024-02-02 18:12] LABS: Mononuclear WBC,Body Fluid 70 %; Polynuclear WBC,Body Fluid 30 %; Total Cells Counted,Body Fluid 100
== END | disposition home or self-care (01) ==
LOC: LABWHC1 15:35
PROVIDERS: ATTEND Orthopaedic Surgery
DX: T84.84XA Pain due to internal orthopedic prosthetic devices, implants and grafts, initial encounter (principal); E11.9 Type 2 diabetes mellitus without complications; M25.561 Pain in right knee; M25.562 Pain in left knee; Z96.653 Presence of artificial knee joint, bilateral
CPT/HCPCS: 36415; 85379; 85652; 86140; 87070; 87075; 87205; 89050

== ENCOUNTER → 2024-02-10 | Outpatient (CLI) | payer MEDICARE ==
--- NOTE | 2024-03-21 14:12 | NM ---
Patient Shahrzad Khalil ID [id number] Order # EXAMINATION TYPE: NM bone 3 phase DATE OF EXAM: 02/17/2024 COMPARISON: No comparison available on downtime PACS. CLINICAL INDICATION: Left knee pain history of artificial joint. Technique: Triple phase bone scintigraphy was performed following the injection of 22.4 mCi Tc 99m MD P. Images were obtained with flow or pool and static imaging. FINDINGS: Blood flow: Blood flow over the bilateral knees appears with subtle mild diffuse uptake on the right compared to the left. On blood pool images there is increased radiotracer over the right proximal foreleg compared to the l eft. Static images: Photopenic defects from the patient's knee prostheses appears to be present. There is some focal uptake along the medial femoral condyle on the right. This is not triple matched with the blood flow and blood pool imaging. IMPRESSION: 1. Suspicious changes for osteomyelitis or loosening not identified 2. Other some mild asymmetric early contrast on the right compared to the left, consider superficial infection or inflammatory change.
== END | disposition home or self-care (01) ==
LOC: RADNMMAIN 07:34
PROVIDERS: ATTEND Orthopaedic Surgery
DX: M25.561 Pain in right knee (principal)
CPT/HCPCS: 78315; A9503

== ENCOUNTER → 2024-04-16 | Outpatient (CLI) | payer MEDICARE ==
[2024-04-16 16:40] LABS: Ionized Calcium 4.9 mg/dL (4.5-5.3)
[2024-04-16 16:53] LABS: African American GFR (CKD) 79 (>60 ml/min/1.73 sqM); Albumin 4.3 g/dL (3.5-5.0); Anion Gap 5 mmol/L; Blood Urea Nitrogen 21 mg/dL (7-17); Calcium 9.7 mg/dL (8.4-10.2); Carbon Dioxide 29 mmol/L (22-30); Chloride 106 mmol/L (98-107); Glucose 86 mg/dL (74-99); Magnesium 1.8 mg/dL (1.6-2.3); Non-African American GFR(CKD) 69 (>60 ml/min/1.73 sqM); Phosphorus 3.8 mg/dL (2.5-4.5); Sodium 140 mmol/L (137-145); Uric Acid 5.9 mg/dL (3.7-7.4)
[2024-04-16 19:09] LABS: Basophils # (A) 0.03 X 10*3/uL (0.00-0.10); Basophils % (A) 0.3 %; Eosinophils # (A) 0.22 X 10*3/uL (0.04-0.35); Eosinophils % (A) 2.5 %; HGB 12.3 g/dL (12.0-15.0); Lymphocytes # (A) 1.36 X 10*3/uL (0.90-5.00); Lymphocytes % (A) 15.5 %; MCH 31.5 pg (27.0-32.0); MCHC 31.5 g/dL (32.0-37.0); Mean Platelet Volume 10.8 FL (9.5-12.2); Monocytes # (A) 0.95 X 10*3/uL (0.20-1.00); Monocytes % (A) 10.8 %; NRBC Per 100 WBC 0 X 10*3/uL (0.00-0.01); Neutrophils # (A) 6.16 X 10*3/uL (1.80-7.70); Neutrophils % (A) 70.2 %; Platelet Count 367 X 10*3/uL (140-440); RDW 14.1 % (11.5-14.5); WBC 8.78 X 10*3/uL (4.50-10.00)
[2024-04-16 20:24] LABS: Appearance,Urine Clear (Clear); Bilirubin,Urine Negative (Negative); Blood,Urine Negative (Negative); Color,Urine Yellow (Yellow); Ketones,Urine Negative (Negative); Nitrite,Urine Negative (Negative); PH, Urine 5.5; Specific Gravity,Urine 1.011 (1.001-1.030); Urobilinogen,Urine 0.2 E.U./DL
[2024-04-16 20:32] LABS: Bacteria,Urine None Seen (None Seen)
[2024-04-16 21:47] LABS: Microalbumin Creatinine Ratio <22 mg/g Cr (0-30); Urine Creatinine 53.9 mg/dL (28.0-217.0)
[2024-04-17 09:31] LABS: Angiotensin-1 Converting Enz. 5 U/L (8-52)
[2024-04-17 09:42] LABS: % Iron Saturation 19.57 (12.00-45.00); Iron 91 UG/DL (50-170); Total Iron Binding Capacity 465 UG/DL (228-460)
[2024-04-17 18:41] LABS: Vitamin D, 1, 25-Dihydroxy 48 pg/mL (20 - 79)
== END | disposition home or self-care (01) ==
LOC: LABWHC1 15:35
PROVIDERS: ATTEND Internal Medicine
CPT/HCPCS: 36415; 80048; 81001; 82040; 82043; 82164; 82306; 82330; 82570; 82652; 82728; 83540; 83550; 83735; 83970; 84100; 84166; 84550; 85025

== ENCOUNTER → 2024-04-20 | Outpatient (CLI) | payer MEDICARE | END | disposition home or self-care (01) | LOC: LABWHC1 09:14 | PROVIDERS: ATTEND Surgery | DX: E24.9 Cushing's syndrome, unspecified (principal) | CPT/HCPCS: 36415; 82533 ==

== ENCOUNTER → 2024-07-05 | Outpatient (CLI) | payer MEDICARE ==
[2024-07-05 11:39] VITALS: BP 142/88; PULSE 98; RESP 20; TEMP 97.7
--- NOTE | 2024-07-05 12:11 | P.PROGSL ---
Subjective DATE: 07/05/2024 FOLLOW UP VISIT. Patient with obstructive sleep apnea hypopnea syndrome return to sleep center for follow-up visit. Information from previous visit have been reviewed. Patient is using PAP equipment every night for the whole night, getting PAP supplies in time. The patient does not have significant problems with the mask, PAP unit and humidification. [place] sleepiness scale is 4. I checked information from PAP unit. PAP unit pressure 8 cm H2O. Usage is 100% for more then 4 hours, average 7.6 hours per night. Leak is 14 l/m, which is in acceptable range. Apnea Hypopnea Index is 3.8, which is normal. AHI during last night increased to 7.4. MEDICATIONS have been reviewed, please see below. During physical exam: GENERAL: A pleasant patient without any distress. VITAL SIGNS: Please see below, weight is 335 lbs. HEENT: PERRLA, EOMI.low position of soft palate, Mallapati 3 . NECK: Supple. No JVD. LUNGS: Clear to percussion and to auscultation. Good air exchange. No wheezing or rhonchi. HEART: S1, S2 regular. ABDOMEN: Soft and nontender.[] EXTREMITIES: No clubbing or cyanosis. FOOT SPECIALIST: Awake, alert, and oriented x3. No focal deficit. Impressions: 1. Obstructive sleep apnea-hypopnea syndrome. Patient demonstrated great compliance with treatment, benefiting from treatment. 2. Obesity, BMI 58.4, patient lost 8 pounds comparing with previous visit. 3. Status post recent parathyroidectomy. 4. Status post recent thyroid resection. 5. History of restless leg syndrome and periodic limb movements, no problems with Requip treatment. 6. Hypertension. 7. Hyperlipidemia. 8. History of Hodgkin lymphoma. 9. Status post bilateral knee replacement. 10. Allergies. 11. Asthma 12. Diabetes mellitus type 2. 13. Anxiety 14. History of CHF 15. Status post tonsillectomy. 16. Status post hysterectomy. 17. History of depression. I adjusted CPAP unit to AutoPap with a range of pressure 6-10 cm of water. Plan: 1. Continue using PAP equipment every night for the whole night. 2. Sleep hygiene with regular time in bed for at least 7.5-8 hours 3. PAP unit should stay lower then position of the head. 4. Advised patient to remove all remaining water from humidifier canister daily and make it dry after each usage. Refill canister with fresh distilled water before each usage. 5. Watching weight. 6. Precautions related to driving. No driving if feel any sleepiness. 7. I will maintain prescription for PAP supplies including mask, tube, filters. 8. Follow up visit in 8 months or earlier if patient has any problems. Thank you very much for allowing me to participate in the management of your patient. Willie Long MD, PhD, FAASM. Diplomat of [place] [employer], Sleep Medicine Board by [place] [employer] Hearing Therapy Director of [facility] [place] cc: Robert Ly DO Objective - Vital Signs Vital Signs: Vital Signs Temp 97.7 F 07/05/24 11:37 Pulse 98 07/05/24 11:37 Resp 20 07/05/24 11:37 BP 142/88 07/05/24 11:37 Pulse Ox 95 07/05/24 11:37 FiO2 Intake & Output 07/04/24 07/05/24 07/05/24 18:59 06:59 18:59 Weight 151.953 kg Home Medications: Home Medications Medication Instructions Recorded Confirmed Type ALPRAZolam [Xanax] 0.25 mg PO TID PRN 04/14/15 07/05/24 History Aspirin 81 mg PO HS 04/14/15 07/05/24 History HYDROcodone/APAP 10-325MG [[place] 1 tab PO DAILY 04/14/15 07/05/24 History 10-325] buPROPion SR [Wellbutrin SR] 150 mg PO BID 04/14/15 07/05/24 History Eszopiclone [Lunesta] 3 mg PO HS 01/02/20 07/05/24 History Lutein 20 mg PO DAILY@1200 01/02/20 07/05/24 History Multivitamin [Multivitamins Adult 1 tab PO DAILY 01/02/20 07/05/24 History Gummies] Venlafaxine HCl [Effexor XR] 225 mg PO DAILY 01/02/20 07/05/24 History Atorvastatin [Lipitor] 20 mg PO HS 05/17/23 07/05/24 History Cetirizine HCl [Zyrtec] 10 mg PO DAILY 05/17/23 07/05/24 History Cholecalciferol [Vitamin D3 (125 125 mcg PO DAILY 05/17/23 07/05/24 History Mcg = 5000 Iu)] HYDROcodone/APAP 10-325MG [[place] 1 tab PO BID PRN 05/17/23 07/05/24 History 10-325] carvediloL [Coreg] 25 mg PO BID 05/17/23 07/05/24 History rOPINIRole HCL [Requip] 1 mg PO DAILY@1300 05/17/23 07/05/24 History Albuterol Sulfate [Albuterol 1 puff PO Q4-6H #8.5 gm 05/18/23 07/05/24 Rx Sulfate Hfa] Bumetanide [BUMEX] 1 mg PO DAILY@1300 #0 05/18/23 07/05/24 Rx Fluticasone Propion/Salmeterol 1 inhalation PO BID #1 each 05/18/23 07/05/24 Rx [Advair 250-50 Diskus] Cinacalcet HCl 30 mg PO WEEKLY 07/05/24 07/05/24 History
== END ==
LOC: 3 N SLEEP 11:20
PROVIDERS: ATTEND Internal Medicine
DX: G47.33 Obstructive sleep apnea (adult) (pediatric) (principal); E66.9 Obesity, unspecified; E89.2 Postprocedural hypoparathyroidism; E89.0 Postprocedural hypothyroidism; G25.81 Restless legs syndrome; I10 Essential (primary) hypertension; E78.5 Hyperlipidemia, unspecified; J45.901 Unspecified asthma with (acute) exacerbation; E11.9 Type 2 diabetes mellitus without complications; F41.9 Anxiety disorder, unspecified; Z86.59 Personal history of other mental and behavioral disorders; Z68.43 Body mass index [BMI] 50.0-59.9, adult; Z87.42 Personal history of other diseases of the female genital tract; Z96.653 Presence of artificial knee joint, bilateral; Z88.8 Allergy status to other drugs, medicaments and biological substances; Z87.891 Personal history of nicotine dependence; Z85.71 Personal history of Hodgkin lymphoma
CPT/HCPCS: 99212

== ENCOUNTER → 2024-11-13 | Outpatient (CLI) | payer MEDICARE ==
[2024-11-13 18:34] LABS: Albumin 4.4 g/dL (3.8-4.9); BUN/Creat Ratio 31.64 Ratio (12.00-20.00); Blood Urea Nitrogen 34.8 mg/dL (9.0-27.0); Calcium 9.7 mg/dL (8.7-10.3); Carbon Dioxide 20.9 mmol/L (21.6-31.8); Chloride 104 mmol/L (96-109); Glucose 93 mg/dL (70-110); Potassium 4.4 mmol/L (3.5-5.5); Sodium 140 mmol/L (135-145); T4, Free (Free Thyroxine) 1.12 ng/dL (0.80-1.80)
== END | disposition home or self-care (01) ==
LOC: LABWHC1 13:22
PROVIDERS: ATTEND Internal Medicine Nephrology
DX: E11.9 Type 2 diabetes mellitus without complications (principal); Z90.89 Acquired absence of other organs; E21.2 Other hyperparathyroidism
CPT/HCPCS: 36415; 80048; 82040; 82306; 83036; 83970; 84439; 84443

== ENCOUNTER → 2024-11-20 | Outpatient (CLI) | payer MEDICARE ==
--- NOTE | 2024-11-21 14:40 | MM ---
Reason for Exam: Screening (asymptomatic). Last mammogram was performed 1 year(s) and 2 month(s) ago. Patient History: Menarche at age 12. Patient has no children. Left ovary removed at age 43. Right ovary removed at age 43. Hysterectomy at age 43. Postmenopausal. Other cancer, age 44. Previous chest radiation therapy at age 44. Previous chemotherapy at age 44. Cyst Aspiration on the Right side. 04/20/2004, Benign Stereotactic Core Biopsy on the right side. Paternal cousin had breast cancer under age 50. Paternal cousin had breast cancer at or over age 50. Paternal cousin had breast cancer at or over age 50. Risk Values: Funmilayo 5 year model risk: 2.2%. NCI Lifetime model risk: 8.2%. Prior Study Comparison: 09/03/2021 Bilateral MG 3D screening mammo w/cad, [facility]. 09/15/2022 Bilateral MG 3D screening mammo w/cad, [facility]. 09/19/2023 Bilateral MG 3D screening mammo w/cad, [facility]. Tissue Density: The breasts are almost entirely fatty. Findings: Analyzed By CAD. Right breast: There is no suspicious group of microcalcifications or new suspicious mass. Benign-appearing calcifications right breast. Left breast: There is no suspicious group of microcalcifications or new suspicious mass. Benign-appearing calcifications left breast. Overall Assessment: Benign, BI-RAD 2 Management: Screening Mammogram of both breasts in [address] [facility] will attempt to contact patient to return for supplemental views and ultrasound if indicated. Patient should continue monthly self-breast exams. A clinical breast exam by your physician is recommended on an annual basis. This exam should not preclude additional follow-up of suspicious palpable abnormalities. Note on Funmilayo scores and lifetime risk: 1. A Funmilayo score greater than 3% is considered moderate risk. If this is the case, consider specialist referral to assess eligibility for a risk reducing agent. 2. If overall lifetime risk for the development of breast cancer is 20% or higher, the patient may qualify for future screening with alternating mammogram and breast MRI. [facility], , 11/20/2024 1:32 PM. Electronically signed and approved by: Kelvin Ladd DO
== END | disposition home or self-care (01) ==
LOC: RADMAMWWP 13:17
PROVIDERS: ATTEND Family Medicine
DX: Z12.31 Encounter for screening mammogram for malignant neoplasm of breast (principal); R92.313 Mammographic fatty tissue density, bilateral breasts; Z78.0 Asymptomatic menopausal state; Z80.3 Family history of malignant neoplasm of breast; Z92.3 Personal history of irradiation
CPT/HCPCS: 77063; 77067